=== PATIENT | female | born 1965 | race Hispanic/Latino ===

== ENCOUNTER 2021-05-23 16:05 | Inpatient (IN) | payer BC, OTHER ==
[~2021-05-23] VITALS: Ht 152.4 cm; Wt 105.0 kg
--- NOTE | 2021-05-23 16:18 | NUR ---
PATIENT TO ROOM VIA WHELCHAIR AND PHYSICIAN NOTIFIED OF PATIENT STATUS
[2021-05-23 17:18] LABS: HEMATOCRIT 38.5 % (37.0-47.0); HEMOGLOBIN 12.3 g/dl (12.0-16.0); IMMATURE GRANULOCYTES 0.3 % (0.0-5.0); MEAN CELL VOLUME 83.5 fL CALC (80.0-100.0); MEAN CORPUSCULAR HGB 26.7 pG CALC (26.0-32.0); MEAN CORPUSCULAR HGB CONC 31.9 g/dL CAL (32.0-36.0); NEUT# 11.97 thou/uL (2.00-7.15); RED BLOOD COUNT 4.61 mill/uL (4.20-5.60); RED CELL DISTRI WIDTH 12.8 % (11.5-15.5)
[2021-05-23 17:31] LABS: ALBUMIN 3.8 g/dL (3.2-5.0); ALKALINE PHOSPHATASE 66 u/l (38-126); ANION GAP 14 (6-22 (CALC)); BILIRUBIN, TOTAL 0.5 mg/dL (0.0-1.4); BUN 14 mg/dL (7-17); BUN/CREATININE RATIO 17 (12-20 (CALC)); CARBON DIOXIDE 32 mmol/l (22-30); CHLORIDE 95 mmol/l (95-108); CREATININE 0.8 mg/dL (0.5-1.0); GFR > 60 ML/MIN (>=60 (CALC)); GFR FOR AFR.AMER. > 60 ML/MIN (>=60 (CALC)); POTASSIUM 3.7 mmol/l (3.5-5.1); SGOT/AST 47 u/l (14-36); SODIUM 137 mmol/l (137-146); TOTAL PROTEIN 7.5 g/dL (6.3-8.2)
--- NOTE | 2021-05-23 18:12 | NUR ---
TO RADIOLOGY IN STABLE CONDITION
--- NOTE | 2021-05-23 19:50 | NUR ---
Admission Note Report Given to: FILEMON DE LA O Transported by: Wheelchair X Stretcher Transported with: X Nurse Transporter X Patent IV X O2 X Chain Builder Location: ICU X MS2
--- NOTE | 2021-05-23 20:00 | NUR ---
PATIENT TRANSFERRED TO [facility] VIA STRETCHER BY ER NURSE. PATIENT SELF AMBULATED TO BED. ORIENTED TO ROOM. CALL LIGHT WITHIN REACH ALONG WITH BELONGINGS. PATIENT STABLE AT THIS TIME. RESPIRATIONS EVEN AND NON LABORED.
[2021-05-23 21:15] VITALS: BP 133/62
--- NOTE | 2021-05-23 22:21 | NUR ---
ASSESSMENT DONE AT THIS TIME. PATIENT DENIES ANY PAIN OR DISCOMFORT. ALERT AND ORIENTED. ABLE TO MAKE NEEDS KNOWN. NEEDS ASSIST WITH ADL AND TRANSFER. CALL LIGHT AND BELONGINGS WITHIN REACH.
[2021-05-24] VITALS: BP 109/48
--- NOTE | 2021-05-24 02:15 | NUR ---
PT AWAKE LOW FOWLERS WATCHING TV.
[2021-05-24 05:00] VITALS: BP 107/53
--- NOTE | 2021-05-24 06:35 | NUR ---
PT IS SITTING UPRIGHT IN HIGH FOWLERS, O2 SAT 87% SUSTAINED ON 5LNC. PT PLACED ON HIGH FLOW NC 8L AT THIS TIME, SUSTAINING 91-92% PT REFUSED TO DEMONSTRATE I.S., I EDUCATED HER ON THE NEED FOR THIS THROUGHOUT THE DAY WHEN AWAKE, VERBALIZED UNDERSTANDING, STATED THAT SHE WILL DO THIS LATER. PT LEFT PRONING.
[2021-05-24 06:38] LABS: ALBUMIN 3.7 g/dL (3.2-5.0); ALKALINE PHOSPHATASE 75 u/l (38-126); ANION GAP 15 (6-22 (CALC)); BILIRUBIN, TOTAL 0.3 mg/dL (0.0-1.4); BUN 13 mg/dL (7-17); BUN/CREATININE RATIO 18 (12-20 (CALC)); CARBON DIOXIDE 27 mmol/l (22-30); CHLORIDE 100 mmol/l (95-108); CREATININE 0.7 mg/dL (0.5-1.0); GFR > 60 ML/MIN (>=60 (CALC)); GFR FOR AFR.AMER. > 60 ML/MIN (>=60 (CALC)); POTASSIUM 4.3 mmol/l (3.5-5.1); SGOT/AST 44 u/l (14-36); SODIUM 138 mmol/l (137-146); TOTAL PROTEIN 7.5 g/dL (6.3-8.2)
[2021-05-24 06:55] LABS: HEMATOCRIT 39.1 % (37.0-47.0); HEMOGLOBIN 12.7 g/dl (12.0-16.0); IMMATURE GRANULOCYTES 0.3 % (0.0-5.0); MEAN CELL VOLUME 83.4 fL CALC (80.0-100.0); MEAN CORPUSCULAR HGB 27.1 pG CALC (26.0-32.0); MEAN CORPUSCULAR HGB CONC 32.5 g/dL CAL (32.0-36.0); NEUT# 10.4 thou/uL (2.00-7.15); RED BLOOD COUNT 4.69 mill/uL (4.20-5.60); RED CELL DISTRI WIDTH 12.7 % (11.5-15.5)
[2021-05-24 07:02] LABS: C-REACTIVE PROTEIN 33.6 mg/dL (0-0.9)
[2021-05-24 07:41] VITALS: BP 124/63
--- NOTE | 2021-05-24 07:41 | NUR ---
PT SLEEP PRONING WHEN ENTERED ROOM. PT IS ALERT AND ORIENTED. PLEASANT WOMEN. VITALS AND ASSESSMENT COMPLETED. PT IS COVID+. ON 8L OF 02. S1 AND S2 HEARD UPON ASCULTATION. BOWELS ACTIVE IN ALL 4 QUADRANTS. SKIN WARM AND DRY. PEDAL PULSES STRONG BILATERALLY. IV PATENT AND HEALTHY. NO PAIN INDICATED. CALL LIGHT WITHIN REACH.
[2021-05-24 11:30] VITALS: BP 105/50
--- NOTE | 2021-05-24 12:00 | NUR ---
PT IN BED. NO DISTRESS NOTED. CALL LIGHT WITHIN REACH.
[2021-05-24 15:13] VITALS: BP 107/50
--- NOTE | 2021-05-24 17:16 | NUR ---
PT SITTING ON THE SIDE OF THE BED, PT ASSISTED TO BSC BY THIS PULPWOOD BUYER AND LINENS CHANGED. EXERTIONAL SOB NOTED; FLUSHED APPEARANCE BUT AFEBRILE AT THIS TIME. O2 REMAINS AT 10L HF NC CURRENTLY SUSTAINING 90-92%. PT ASSITED BACK TO BED. NO OTHER NEEDS AT THIS TIME. CALL LIGHT WITHIN REACH.
[2021-05-24 19:00] VITALS: BP 118/56
--- NOTE | 2021-05-24 20:02 | NUR ---
ASSESSMENT COMPLETE. PATIENT ALERT AND ABLE TO MAKE NEEDS KNOWN. PATIENT RECEIVED SCHEDULED MEDICATION WITHOUT DIFFICULTY. OXYGEN SATURATION AT 100% ON 10L HIGH FLOW. PATIENT DENIES ANY PAIN. CALL LIGHT AND BELONGINGS WITHIN REACH.
--- NOTE | 2021-05-24 20:19 | NUR ---
CALLED RESPIRATORY TO COME LOOK AT PATIENTS CPAP PER PATIENT REQUEST.
[2021-05-25] VITALS: BP 104/47
--- NOTE | 2021-05-25 | NUR ---
I WAS CALLED TO THE ROOM FOR LOW O2 SAT LEVELS OF PT. UPON ENTERING THE ROOM, 7TH GRADE TEACHER AND PT NURSE WERE AT BEDSIDE AND PT WAS PRONING IN THE BED WITH CPAP ON. OXYGEN SAT LEVELS WERE 74-76% ON CPAP WITH OXYGEN RUNNING TO CPAP. PT REMOVED CPAP, PLACING HIGH FLOW NC ON, OXYGEN SAT LEVELS QUICKLY DALI TO 91-93% ON 9L HIGH FLOW NC. SHE REMAINS IN PRONE POSITION UPON MY LEAVING THE ROOM.
--- NOTE | 2021-05-25 00:30 | NUR ---
RECHECKED PATIENTS O2, SATURATION SUSTAINING AT 93%. PATIENT DENIES ANY DISCOMFORT.
[2021-05-25 04:00] VITALS: BP 105/57
--- NOTE | 2021-05-25 04:30 | NUR ---
PATIENT TRANSFERRED TO BEDSIDE COMMODE WITH GLASS BREAKER PRESENT. NEW GOWN AND UNDERWEAR NETTING/PAD ON. FRESH WATER AT THE BED SIDE. PATIENT REQUESTED TO HAVE BLINDS CLOSED IN HER ROOM. NO COMPLAINTS VOICED AT THIS TIME. CALL LIGHT AND BELONGINGS REMAIN IN REACH.
[2021-05-25 05:46] LABS: HEMATOCRIT 38.5 % (37.0-47.0); HEMOGLOBIN 12.3 g/dl (12.0-16.0); IMMATURE GRANULOCYTES 0.3 % (0.0-5.0); MEAN CELL VOLUME 83.5 fL CALC (80.0-100.0); MEAN CORPUSCULAR HGB 26.7 pG CALC (26.0-32.0); MEAN CORPUSCULAR HGB CONC 31.9 g/dL CAL (32.0-36.0); NEUT# 9.99 thou/uL (2.00-7.15); RED BLOOD COUNT 4.61 mill/uL (4.20-5.60); RED CELL DISTRI WIDTH 12.8 % (11.5-15.5)
[2021-05-25 05:53] LABS: ALBUMIN 3.5 g/dL (3.2-5.0); ALKALINE PHOSPHATASE 69 u/l (38-126); ANION GAP 15 (6-22 (CALC)); BILIRUBIN, TOTAL 0.3 mg/dL (0.0-1.4); BUN 18 mg/dL (7-17); BUN/CREATININE RATIO 25 (12-20 (CALC)); CARBON DIOXIDE 27 mmol/l (22-30); CHLORIDE 100 mmol/l (95-108); CREATININE 0.7 mg/dL (0.5-1.0); GFR > 60 ML/MIN (>=60 (CALC)); GFR FOR AFR.AMER. > 60 ML/MIN (>=60 (CALC)); POTASSIUM 4.1 mmol/l (3.5-5.1); SGOT/AST 46 u/l (14-36); SODIUM 137 mmol/l (137-146); TOTAL PROTEIN 7.2 g/dL (6.3-8.2)
[2021-05-25 07:17] VITALS: BP 123/51
--- NOTE | 2021-05-25 07:17 | NUR ---
PT SLEEP WHEN ENTERING ROOM. PT IS COVID+ ON 10L OF 02. PT WAS PRONING. ALERT AND ORIENTED. VITALS AND ASSESSMENT COMPLETED. S1 AND S2 HEARD UPON ASCULTATION.SKIN WARM AND DRY. BOWELS ACTIVE IN ALL 4 QUADRANTS. PEDAL PULSES STRONG BILATERALLY. IV PATENT AND HEALTHY. NO PAIN INDICATED. CALL LIGHT WITHIN REACH.
--- NOTE | 2021-05-25 09:41 | NUR ---
Patient is screened for PT intervention and no needs are identified at this time
[2021-05-25 11:00] VITALS: BP 110/56
--- NOTE | 2021-05-25 11:06 | NUR ---
DR. DELGADO AND Danya CURRAN AT BEDSIDE DISCUSSING POC.
--- NOTE | 2021-05-25 11:40 | NUR ---
TOOK PT TO THE BSC. NO OTHER WANTS AT THIS TIME. CALL LIGHT WITHIN REACH.
--- NOTE | 2021-05-25 12:00 | NUR ---
PT IN BED. NO DISTRESS NOTED. CALL LIGHT WITHIN REACH.
[2021-05-25 16:30] VITALS: BP 116/49
[2021-05-25 19:00] VITALS: BP 123/49
--- NOTE | 2021-05-25 20:09 | NUR ---
PHYSICAL ASSESMENT COMPLETE. PT CURRENTLY DENIES PAIN OR DISCOMFORT. SCHEDULED MEDICATIONS AND PRN MEDICATION ADMINISTERED, SEE E-MAR. PT DENIES ANY NEEDS AT THIS TIME. PLAN OF CARE REVIEWED, PT DENIES QUESTIONS, VERBALIZES UNDERSTANDING. ITEMS WITHIN REACH, BED LOCKED IN LOW POSITION W/ BEDRAILS UP X2. CALL FREEMAN WITHIN REACH, AGREES TO CALL PRN.
[2021-05-26] VITALS: BP 118/67
--- NOTE | 2021-05-26 00:09 | NUR ---
PT LAYING IN BED WITH EYES CLOSED, APPEARS TO BE SLEEPING, APPEARS COMFORTABLE AND IN NO DISTRESS. RESPIRATIONS REGULAR AND UNLABORED. ITEMS REMAIN WITHIN REACH, CALL FREEMAN REMAINS WITHIN REACH. BED REMAINS LOCKED AND IN LOW POSITION WITH BEDRAILS UP X2. WILL CONTINUE TO MONITOR.
[2021-05-26 04:00] VITALS: BP 116/59
--- NOTE | 2021-05-26 04:00 | NUR ---
PT RESTING IN BED, NO SIGNS OF DISTRESS NOTED, RESP EVEN AND UNLABORED. PT VOICES NO NEEDS OR COMPLAINTS AT THIS TIME. CALL LIGHT IN REACH, CONTINUE TO MONITOR.
[2021-05-26 05:28] LABS: HEMATOCRIT 37.3 % (37.0-47.0); HEMOGLOBIN 11.7 g/dl (12.0-16.0); IMMATURE GRANULOCYTES 0.4 % (0.0-5.0); MEAN CELL VOLUME 84.6 fL CALC (80.0-100.0); MEAN CORPUSCULAR HGB 26.5 pG CALC (26.0-32.0); MEAN CORPUSCULAR HGB CONC 31.4 g/dL CAL (32.0-36.0); NEUT# 9.94 thou/uL (2.00-7.15); RED BLOOD COUNT 4.41 mill/uL (4.20-5.60); RED CELL DISTRI WIDTH 12.6 % (11.5-15.5)
[2021-05-26 05:59] LABS: ALBUMIN 3.3 g/dL (3.2-5.0); ALKALINE PHOSPHATASE 64 u/l (38-126); ANION GAP 14 (6-22 (CALC)); BILIRUBIN, TOTAL 0.3 mg/dL (0.0-1.4); BUN 21 mg/dL (7-17); BUN/CREATININE RATIO 27 (12-20 (CALC)); C-REACTIVE PROTEIN 5.7 mg/dL (0-0.9); CARBON DIOXIDE 26 mmol/l (22-30); CHLORIDE 103 mmol/l (95-108); CREATININE 0.8 mg/dL (0.5-1.0); GFR > 60 ML/MIN (>=60 (CALC)); GFR FOR AFR.AMER. > 60 ML/MIN (>=60 (CALC)); POTASSIUM 4.6 mmol/l (3.5-5.1); SGOT/AST 41 u/l (14-36); SODIUM 139 mmol/l (137-146); TOTAL PROTEIN 6.8 g/dL (6.3-8.2)
[2021-05-26 07:30] VITALS: BP 117/71
--- NOTE | 2021-05-26 07:30 | NUR ---
PT IN BED WHEN ENTERED ROOM. PT IS ALERT AND ORIENTED. COVID+ ON 14L O2. VITALS AND ASSESSMENT COMPLETED AT THIS TIME. S1 AND S2 HEARD UPON ASCULTATION. LUNGS DIMINISHED. BOWELS ACTIVE IN ALL 4 QUADS. SKIN DRY AND WARM. PEDAL PULSES BILATERALLY STRONG. NO PAIN INDICATED. CALL LIGHT WITHIN REACH.
--- NOTE | 2021-05-26 10:41 | NUR ---
PT IN BED. NO DISTRESS NOTED. NO PAIN INDICATED. CALL LIGHT WITHIN REACH.
[2021-05-26 11:00] VITALS: BP 133/56
--- NOTE | 2021-05-26 12:00 | NUR ---
PT IN BED. NO DISTRESS NOTED. NO NEEDS AT THIS TIME. CALL LIGHT WITHIN REACH.
[2021-05-26 19:00] VITALS: BP 116/55
[2021-05-27] VITALS (7 sets, daily range): BP systolic 101–125; BP diastolic 48–68
[2021-05-27 05:47] LABS: HEMATOCRIT 38.3 % (37.0-47.0); HEMOGLOBIN 12.2 g/dl (12.0-16.0); IMMATURE GRANULOCYTES 0.6 % (0.0-5.0); MEAN CELL VOLUME 84.7 fL CALC (80.0-100.0); MEAN CORPUSCULAR HGB CONC 31.9 g/dL CAL (32.0-36.0); NEUT# 10.23 thou/uL (2.00-7.15); RED BLOOD COUNT 4.52 mill/uL (4.20-5.60); RED CELL DISTRI WIDTH 12.7 % (11.5-15.5)
[2021-05-27 05:55] LABS: ALBUMIN 3.2 g/dL (3.2-5.0); ALKALINE PHOSPHATASE 56 u/l (38-126); ANION GAP 14 (6-22 (CALC)); BILIRUBIN, TOTAL 0.4 mg/dL (0.0-1.4); BUN 18 mg/dL (7-17); BUN/CREATININE RATIO 26 (12-20 (CALC)); CARBON DIOXIDE 26 mmol/l (22-30); CHLORIDE 103 mmol/l (95-108); CREATININE 0.7 mg/dL (0.5-1.0); GFR > 60 ML/MIN (>=60 (CALC)); GFR FOR AFR.AMER. > 60 ML/MIN (>=60 (CALC)); POTASSIUM 4.3 mmol/l (3.5-5.1); SGOT/AST 31 u/l (14-36); SODIUM 140 mmol/l (137-146); TOTAL PROTEIN 6.7 g/dL (6.3-8.2)
--- NOTE | 2021-05-27 07:00 | NUR ---
RECIEVED REPORT FROM FILEMON MENESES
--- NOTE | 2021-05-27 09:30 | NUR ---
PT RESTING IN SEMI FOWLERS POSITION. PT IS A/O X3. ASSESSMENT AND VITALS COMPLETED. BP 121/66, HR 100, O2 93% ON 13L HIGH FLOW NC. RESPIRATIONS ARE SHALLOW. LUNG SOUNDS ARE CLEAR. HEART RHYTHM NORMAL WITH TELE IN PLACE. BOWEL SOUNDS ARE ACTIVE. REPORTED BM. #20G LAC FLUSHED,SITE APPEARS HEALTHY AND PATENT. SKIN INTACT. PT DENIES OF ANY PAINS OR DISCOMFORTS AT THIS TIME. PT EDUACTED ON I.S/CHAIR/PRONING. PT VERBLAIZED UNDERSTANDING. ALL SAFETY AND ISOLATION PRECAUTIONS ARE IN PLACE WITH CALL LIGHT IN REACH. WILL CONTINUE TO MONITOR.
--- NOTE | 2021-05-27 10:48 | NUR ---
DR DELGADO AND NENA,ANKASANDRA AT BEDSIDE
--- NOTE | 2021-05-27 12:11 | NUR ---
PT RESTING IN SEMI FOWLERS POSITION. REPSIRATIONS ARE SHALLOW. 90% ON 13L HIGH FLOW NC. O2 INCREASED TO 15L HIGH FLOW NC AND PT ASSISTED IN PRONE POSITION. O2 95-96% WHILE PRONING. PT AGREES TO REMAINS PRONE FOR LONG POSSIBLE.TELE MONITORING IN PLACE. PT DENIES OF ANY PAINS OR DISCOMFORTS. ALL SAFETY PRECAUTIONS ARE IN PLACE WITH CALL LIGHT IN REACH. ISOLATION PRECAUTIONS. WILL CONTINUE TO MONITOR
--- NOTE | 2021-05-27 15:08 | NUR ---
PT RESTING IN SEMI FOWLERS POSITION. O2 93% ON 15L HIGH FLOW. RESPIRATIONS SHALLOW. IV ANTIBIOTICS INFUSING PER ORDER, SITE REMAINS HEALTHY AND PATENT. PT DENIES OF ANY PAINS OR DISCOMFORTS AT THIS TIME. ALL SAFETY PRECAUTIONS ARE IN PLACE WITH CALL LIGHT IN REACH. WILL CONTINUE TO MONITOR
--- NOTE | 2021-05-27 18:07 | NUR ---
NEW #22G RAC STARTED, SITE REMAINS HEALTHY AND PATENT. #20G LAC REMOVED WITH CATH STILL INTACT.
--- NOTE | 2021-05-27 20:17 | NUR ---
UPON ENTERING ROOM PT IS UPRIGHT IN HIGH FOWLERS WATCHING TO AND TALKING ON CELLPHONE. OXYGEN SAT 92% ON 15LNC HIGH FLOW. PT DENIES FEELING SOB AT THIS TIME. WE DISCUSSED PRONING AND I.S./SHE DEMONSTRATED ITS USE AT THIS TIME. WITH LOW VOLUME BREATH'S. ASSESSMENT COMPLETED ALSO AT THIS TIME AND MEDICATION ADMINISTERED ORDERS PROVIDE. TISHA SOUNDS ARE DIMINISHED.
--- NOTE | 2021-05-28 00:20 | NUR ---
POLISHING MACHINE OPERATOR OBTAINING V/S, REPORTS PT IS 98% O2 SAT AT THIS TIME AND PT IS PRONING.
[2021-05-28 04:00] VITALS: BP 113/51
--- NOTE | 2021-05-28 04:00 | NUR ---
GYNECOLOGICAL ASSISTANT CALLED TO REPORT THAT PT O2 SATS WERE 84% UPON ASSESSING THE PT, WE WERE ABLE TO REMOVE PILLOWS FROM PRONING POSITION AND SHE LAYED MORE FLAT ON THE BED ALLOWING O2 SATS TO COME BACK UP TO 92% ON 15L NC HIGH FLOW.
--- NOTE | 2021-05-28 05:00 | NUR ---
PT CALLED ASKING FOR ASSISTANCE USING BSC. CREW LEADER ASSISTED HER TO BSC AND BACK TO THE BED. BY THE TIME THE PT RETURNED TO THE BED PRONE HER 02 SATS WERE 65% ON THE 15LNC HIGH FLOW. BUT QUICKLY CORRECTED ITSELF BACK UP TO 95% AFTER A COUPLE OF MINUTES PRONING FLAT. POC AND OPTIONS WERE DISCUSSED WITH THE PT AT THIS TIME. SHE VOICED NOT WANTING TO GO TO ICU. DISCUSSED POSSIBLE BABB CATH NEED TO PROTECT HER O2 SAT LEVELS, SHE AGREED IF NECESSARY THAT WOULD NOT BE A PROBLEM. I ADVISED HER THAT THE PHYSICIAN WOULD BE IN THIS MORNING TO DISCUSS HER STATUS AND OPTIONS.
[2021-05-28 05:26] LABS: HEMATOCRIT 40.9 % (37.0-47.0); HEMOGLOBIN 12.6 g/dl (12.0-16.0); IMMATURE GRANULOCYTES 1.5 % (0.0-5.0); MEAN CELL VOLUME 84.7 fL CALC (80.0-100.0); MEAN CORPUSCULAR HGB 26.1 pG CALC (26.0-32.0); MEAN CORPUSCULAR HGB CONC 30.8 g/dL CAL (32.0-36.0); NEUT# 8.76 thou/uL (2.00-7.15); RED BLOOD COUNT 4.83 mill/uL (4.20-5.60); RED CELL DISTRI WIDTH 12.5 % (11.5-15.5)
[2021-05-28 06:06] LABS: ALBUMIN 3.2 g/dL (3.2-5.0); ALKALINE PHOSPHATASE 63 u/l (38-126); ANION GAP 14 (6-22 (CALC)); BILIRUBIN, TOTAL 0.4 mg/dL (0.0-1.4); BUN 16 mg/dL (7-17); BUN/CREATININE RATIO 23 (12-20 (CALC)); C-REACTIVE PROTEIN 7.5 mg/dL (0-0.9); CARBON DIOXIDE 27 mmol/l (22-30); CHLORIDE 103 mmol/l (95-108); CREATININE 0.7 mg/dL (0.5-1.0); GFR > 60 ML/MIN (>=60 (CALC)); GFR FOR AFR.AMER. > 60 ML/MIN (>=60 (CALC)); POTASSIUM 4.8 mmol/l (3.5-5.1); SGOT/AST 24 u/l (14-36); SODIUM 139 mmol/l (137-146); TOTAL PROTEIN 6.6 g/dL (6.3-8.2)
--- NOTE | 2021-05-28 06:50 | NUR ---
REPORT REC FROM Siena KANG RN
[2021-05-28 08:16] VITALS: BP 119/70
--- NOTE | 2021-05-28 08:16 | NUR ---
PT SITTING ON THE SIDE OF THE BED. A&O X4. FLUSHED APPEARANCE NOTED; AFEBILE AT THIS TIME. PT SUSTAINING 87-88% ON 15L HF. PT C/O OF "CONGESTION"; MD TO BE NOTIFIED TO OBTAIN FLONASE ORDER; LUBRICANT ADDED TO NARES FOR MOISTURE. PT REQUESTING TO BE PLACED ON "ANOTHER FORM OF O2; A MASK", VERBAL APPROVAL OBTAINED BY DR NOLAND FOR NRB; Douglas QUISPE RT AT BEDSIDE SWITCHING PT TO NRB, PT TOLERATED WELL; CURRENTLY 93%. CLEAR/DIMINISHED BREATH SOUNDS UPON AUSCULTATION. WIRE COATER IN PLACE CURRENT 98 BPM. ACTIVE BOWEL SOUNDS X4 QUADRANTS. BM THIS MORNING, LOOSE IN CONSISTENCY. NO OTHER NEEDS AT THIS TIME. ASSESSMENT COMPLETED. DISCUSSED POC. VERBAL QUES GIVEN FOR SLIGHT ANXIETY; PT REFUSING XANAX AT THIS TIME; RECEPTIVE TO QUES. ISOLATION PRECAUTIONS IN PLACE. CALL LIGHT WITHIN REACH.
--- NOTE | 2021-05-28 10:35 | NUR ---
DR NOLAND AND Brandon GREEN APRN AT BEDSIDE DISCUSSING POC
[2021-05-28 12:00] VITALS: BP 108/74
--- NOTE | 2021-05-28 12:50 | NUR ---
PT PRONING WITH NRB; PT TOLERATING WELL. O2 @ 98%. NO DISTRESS NOTED. PT REPORTS BREATHING TO LESS DIFFICULT. NO OTHER NEEDS AT THIS TIME. CALL LIGHT WITHIN REACH.
--- NOTE | 2021-05-28 14:17 | NUR ---
PT REMAINS ON NRB; O2 97%. PT REPORTS FEELING BETTER THIS AFTERNOON. PT ASSISTED INTO RECLINER. PT TOLERATED ACTIVITY WELL. BED LINENS CHANGED BY THIS MUSIC ENGRAVER. PT INSTRUCTED TO CALL IF WANTING TO GET OOC. PT VERBALIZED UNDERSTANDING. CALL LIGHT WITHIN REACH.
[2021-05-28 15:00] VITALS: BP 97/59
--- NOTE | 2021-05-28 17:37 | NUR ---
PT SET UP FOR DINNER, CHANGED TO 15L HF, NRB AT SIDE. NO OTHER NEEDS AT THIS TIME. ABX INITIATED AT THIS TIME. CALL LIGHT WITHIN REACH.
[2021-05-28 20:24] VITALS: BP 102/61
--- NOTE | 2021-05-28 20:24 | NUR ---
PT MEDICATED ORDERS PROVIDE AND V/S ASSESSED STABLE. 02SAT 96% WITH NON-REBREATHER IN PLACE OF NC. PT SITTING UPRIGHT IN RECLINER. REPORTS FEELING BETTER THIS EVENING.
--- NOTE | 2021-05-28 21:15 | NUR ---
ANTIBIOTIC THERAPY COMPLETED AT THIS TIME. NO S/O DISTRESS. SHE IS UPRIGHT IN RECLINER TALKING ON CELL PHONE. 96% 02SAT ON 15L NON-REBREATHER MASK.
[2021-05-29] VITALS: BP 155/53
[2021-05-29 04:00] VITALS: BP 109/61
--- NOTE | 2021-05-29 04:05 | NUR ---
PT SLEEPING IN PRONE POSITION, V/S ASSESSED. O2 SATS @96% ON 15LNC HIGH FLOW. PT ASKED FOR ADDITIONAL BLANKET/PROVIDED.
[2021-05-29 05:37] LABS: HEMATOCRIT 39.5 % (37.0-47.0); HEMOGLOBIN 12.5 g/dl (12.0-16.0); IMMATURE GRANULOCYTES 1.7 % (0.0-5.0); MEAN CELL VOLUME 83.9 fL CALC (80.0-100.0); MEAN CORPUSCULAR HGB 26.5 pG CALC (26.0-32.0); MEAN CORPUSCULAR HGB CONC 31.6 g/dL CAL (32.0-36.0); NEUT# 12.02 thou/uL (2.00-7.15); RED BLOOD COUNT 4.71 mill/uL (4.20-5.60); RED CELL DISTRI WIDTH 12.7 % (11.5-15.5)
[2021-05-29 05:49] LABS: ALKALINE PHOSPHATASE 62 u/l (38-126); ANION GAP 12 (6-22 (CALC)); BILIRUBIN, TOTAL 0.3 mg/dL (0.0-1.4); BUN 20 mg/dL (7-17); BUN/CREATININE RATIO 27 (12-20 (CALC)); C-REACTIVE PROTEIN 7.4 mg/dL (0-0.9); CARBON DIOXIDE 28 mmol/l (22-30); CHLORIDE 102 mmol/l (95-108); CREATININE 0.7 mg/dL (0.5-1.0); GFR > 60 ML/MIN (>=60 (CALC)); GFR FOR AFR.AMER. > 60 ML/MIN (>=60 (CALC)); POTASSIUM 4.7 mmol/l (3.5-5.1); SGOT/AST 21 u/l (14-36); SODIUM 137 mmol/l (137-146); TOTAL PROTEIN 6.3 g/dL (6.3-8.2)
--- NOTE | 2021-05-29 06:50 | NUR ---
REPORT RECEIVED. ALL QUESTIONS ANSWERED
--- NOTE | 2021-05-29 08:00 | NUR ---
PT UP TO CHAIR. PT A&OX4. PT DENIES ANY PAIN OR AT THIS TIME. PT C/O NASAL CONGESTION. PT USES FLONASE DAILY. WILL ADMINISTER MEDICATION. PT SPO2=95% ON 15L NC HIGHFLOW. VS AND ASSESSMENT COMPLETE. LUNG SOUNDS DIMINISHED. BOWEL SOUNDS ACTIVE X 4QUAD. PERIPHERAL PULSES PALPALBLE. IV SITE FLUSHED AND IS PATENT. WILL MONITOR PT CLOSELY
[2021-05-29 11:05] VITALS: BP 92/49
--- NOTE | 2021-05-29 12:00 | NUR ---
PT HAS NO NEEDS AT THIS TIME. PT UP TO CHAIR. PT DENIES ANY PAIN OR DISCOMFORT. WILL CONTINUE TO MONITOR CLOSELY
[2021-05-29 15:00] VITALS: BP 113/63
[2021-05-29 19:17] VITALS: BP 90/56
--- NOTE | 2021-05-29 20:00 | NUR ---
PATIENT IS SITTING UP IN THE RECLINER AT THIS TIME WITH O2 VIA NASAL CANNULA AT 15LPM HF. O2 SAT IS 90% AT THIS TIME. AWAKE ALERT AND ORIENTEDX3. TELE MONITOR IN PLACE AND READING ST-105 AT THIS TIME. ENCOURAGED USE OF IS Q1H WHILE AWAKE IN REPS OF 10. ALSO ENCOUARGED PRONING WHEN POSSIBLE. LUNGS ARE CLEAR AT THIS TIME. ABD IS SOFT WITH ACTIVE BS. PATIENT STATES THAT SHE DID HAVE BM TODAY. DENIES ANY PROBLEMS WITH URINATION. NO PERIPHERAL EDEMA NOTED. PULSE ARE PALPABLE. ON ISOLATION FOR COVID. SAFETY PRECAUTIONS REINFORCED. HS SNACK PROVIDED. CALL LIGHT IN REACH. WILL CONT TO MONITOR.
--- NOTE | 2021-05-29 21:45 | NUR ---
PATIENT WITH AZITHRO INFUSING VIA RAC SITE ORDERED. MIN ASSIST PATIENT INOT BED AT THIS TIME. PATIENT WITH O2 NASAL CANNULA IN PLACE AT 15LPM AND NON-REBREATHER IN PLACE. PATIENT IS PRONE AT THIS TIME. CALL LIGHT IN REACH. WILL CONT TO MONITOR.
[2021-05-30 01:07] VITALS: BP 105/55
--- NOTE | 2021-05-30 01:17 | NUR ---
PATIENT CONT TO LYE PRONE IN BED WITH O2 N/C AND NON-REBREATHER IN PLACE WITH O2 SAT OF 97%. TELE MONITOR IN PLACE WITH LAST READING OF SR-64. RESPS ARE EVEN AND UNLABORED. CALL LIGHT IN REACH. WILL CONT TO MONITOR.
--- NOTE | 2021-05-30 04:04 | NUR ---
PATIENT IS AWAKE WITH O2 VIA NASAL CANNULA 15L HIGH FLOW AND NON-REBREATHER IN PLACE. NO COMPLAINTS AT THIS TIME. TELE MONITOR IN PLACE. CALL LIGHT IN REACH. WILL CONT TO MONITOR.
[2021-05-30 05:15] VITALS: BP 109/58
[2021-05-30 05:29] LABS: HEMATOCRIT 40.1 % (37.0-47.0); HEMOGLOBIN 12.9 g/dl (12.0-16.0); IMMATURE GRANULOCYTES 1.5 % (0.0-5.0); MEAN CELL VOLUME 83.7 fL CALC (80.0-100.0); MEAN CORPUSCULAR HGB 26.9 pG CALC (26.0-32.0); MEAN CORPUSCULAR HGB CONC 32.2 g/dL CAL (32.0-36.0); NEUT# 11.81 thou/uL (2.00-7.15); RED BLOOD COUNT 4.79 mill/uL (4.20-5.60); RED CELL DISTRI WIDTH 12.8 % (11.5-15.5)
[2021-05-30 05:43] LABS: ALKALINE PHOSPHATASE 57 u/l (38-126); ANION GAP 12 (6-22 (CALC)); BILIRUBIN, TOTAL 0.3 mg/dL (0.0-1.4); BUN 22 mg/dL (7-17); BUN/CREATININE RATIO 32 (12-20 (CALC)); CARBON DIOXIDE 27 mmol/l (22-30); CHLORIDE 102 mmol/l (95-108); CREATININE 0.7 mg/dL (0.5-1.0); GFR > 60 ML/MIN (>=60 (CALC)); GFR FOR AFR.AMER. > 60 ML/MIN (>=60 (CALC)); POTASSIUM 4.2 mmol/l (3.5-5.1); SGOT/AST 19 u/l (14-36); SODIUM 137 mmol/l (137-146); TOTAL PROTEIN 6.4 g/dL (6.3-8.2)
[2021-05-30 08:10] VITALS: BP 107/54
--- NOTE | 2021-05-30 08:10 | NUR ---
PT SITTING UP IN BED DENIES ANY PAIN OR DISCOMFOT AT THIS TIME. ALERT AND ORIENTED X4 VS AND ASSESSMENT COMPLETE. LUNGS DIMINISHED BREATHS UNLABORED. ABDOMEN ROUND,SOFT NONTENDER. SKIN INTACT PERIPHERAL PULSES STRONG. IV PATENT. IV PATENT AND FLUSHED. SAFETY MEASURES IN PLACE. WILL MONITORD PT CLOSELY
[2021-05-30 11:11] VITALS: BP 96/50
--- NOTE | 2021-05-30 12:00 | NUR ---
PT SITTING UP IN CHAIR. PT DENIES PAIN OR DISCOMFORT. PT HAS NO NEEDS AT THIS TIME. SAFETY PRECAUTIONS IN PLACE. CALL LIGHT WITHIN REACH. WILL CONTINUE TO MONITOR PATIENT CLOSELY
[2021-05-30 15:17] VITALS: BP 92/59
--- NOTE | 2021-05-30 16:00 | NUR ---
PT SITTING IN CHAIR. PT HAS NO NEEDS AT THIS TIME. NO PAIN OR DISCOMFORT REPORTED BY PT. SAFETY PRECAUTIONS IN PLACE, CALL LIGHT WITHIN PT'S REACH. WILL CONTINUE TO MONITOR PATIENT CLOSELY
[2021-05-30 19:00] VITALS: BP 100/60
--- NOTE | 2021-05-30 19:50 | NUR ---
PATIENT SITTING UP IN THE RECLINER WITH NON-REBREATHER IN PLACE. IV ROCEPHIN FINISHED AND IV SITE TO RAC FLUSHED WITH NS. SITE REMAINS HEALTHY WITH GOOD BLOOD RETURN. TELE MONITOR IN PLACE-LAST READING WAS SR-77. ENCOURAGED USE OF IS Q1H W/A AND PRONING WHEN POSSIBLE. LUNGS ARE DIMINISHED THROUGHOUT. NON-PRODUCTIVE COUGH NOTED. LAST BM WAS YESTERDAY. ABD IS SOFT WITH BS+. DENIES ANY DIFFICULTY WITH URINATION,PATIENT ON ISOLATION FOR COVID. SAFETY PRECAUTIONS REINFORCED. CALL LIGHT IN REACH. WILL CONT TO MONITOR.
--- NOTE | 2021-05-30 22:49 | NUR ---
PATIENT STILL UP IN THE CHAIR WITH NON-REBREATHER IN PLACE AT 15LPM HI FLOW. O2 SAT AT THIS TIME IS 95-96%. STILL WITH NON-PRODUCTIVE COUGH. AZITHROMYCIN HUNG ORDERED VIA [facility] SITE. PATIENT REFUSED XANAX EARLIER-STATES THAT SHE DOESN'T WANT IT. TELE MONITOR IN PLACE. PATIENT ON ISOLATION FOR COVID. SAFETY PRECAUTIONS REINFORCED. CALL LIGHT IN REACH., WILL CONT TO MONITOR.
[2021-05-31] VITALS: BP 106/67
--- NOTE | 2021-05-31 01:53 | NUR ---
PATIENT PRONING IN BED WITH NON-REBREATHER 15LPM HI FLOW IN PLACE. RESPS ARE EVEN AND UNLABORED. TELE MONITOR IN PLACE. CALL LIGHT IN REACH. WILL CONT TO MONITOR.
[2021-05-31 03:51] VITALS: BP 91/53
--- NOTE | 2021-05-31 04:43 | NUR ---
PATIENT IS PRONE IN BED WITH NON-REBREATHER ON 15LPM HIGH FLOW IN PLACE. O2 SAT IS 92%. EYES ARE CLOSED AND APPEARS SLEEPING. RESPS ARE EVEN AND UNLABORED, TELE MONITOR IN PLACE-LAST TELE READING WAS SR-72. CALL LIGHT IN REACH. WILL CONT TO MONITOR.
[2021-05-31 05:46] LABS: HEMATOCRIT 41.2 % (37.0-47.0); HEMOGLOBIN 12.9 g/dl (12.0-16.0); IMMATURE GRANULOCYTES 0.8 % (0.0-5.0); MEAN CELL VOLUME 84.8 fL CALC (80.0-100.0); MEAN CORPUSCULAR HGB 26.5 pG CALC (26.0-32.0); MEAN CORPUSCULAR HGB CONC 31.3 g/dL CAL (32.0-36.0); NEUT# 10.91 thou/uL (2.00-7.15); RED BLOOD COUNT 4.86 mill/uL (4.20-5.60); RED CELL DISTRI WIDTH 12.9 % (11.5-15.5)
[2021-05-31 06:21] LABS: ALKALINE PHOSPHATASE 60 u/l (38-126); ANION GAP 12 (6-22 (CALC)); BILIRUBIN, TOTAL 0.3 mg/dL (0.0-1.4); BUN 21 mg/dL (7-17); BUN/CREATININE RATIO 28 (12-20 (CALC)); C-REACTIVE PROTEIN 3.6 mg/dL (0-0.9); CARBON DIOXIDE 29 mmol/l (22-30); CHLORIDE 102 mmol/l (95-108); CREATININE 0.7 mg/dL (0.5-1.0); GFR > 60 ML/MIN (>=60 (CALC)); GFR FOR AFR.AMER. > 60 ML/MIN (>=60 (CALC)); POTASSIUM 4.9 mmol/l (3.5-5.1); SGOT/AST 24 u/l (14-36); SODIUM 137 mmol/l (137-146); TOTAL PROTEIN 6.3 g/dL (6.3-8.2)
--- NOTE | 2021-05-31 07:00 | NUR ---
RECIEVED REPORT FROM FILEMON DORADO
[2021-05-31 09:06] VITALS: BP 109/61
--- NOTE | 2021-05-31 09:06 | NUR ---
PT SITTING UP ON SIDE OF BED UPON ENTERING ROOM. PT IS A/O X3. ASSESSMENT AND VITALS OBTAINED. BP 109/61, HR 103, O2 95% ON 15L HIGH FLOW NC AND 15L NRB. RESPIRATIONS ARE SHALLOW. LUNG SOUNDS ARE CLEAR. HEART RHYTHM NORMAL WITH TELE. BOWEL SOUNDS ARE ACTIVE. #22G RAC FLUSHED, SITE APPEARS HEALTHY AND PATENT. SKIN INTACT. PT DENIES OF ANY PAINS OR DISCOMFORTS AT THIS TIME. PT ASSISTED UP INTO CHAIR. PT DESAT TO 87%. O2 INCREASED BACK TO 90'S. ALL SAFETY PRECAUTIONS ARE IN PLACE WITH CALL LIGHT IN REACH. ISOLATION PRECAUTIONS. WILL CONTINUE TO MONITOR.
[2021-05-31 10:30] VITALS: BP 103/82
--- NOTE | 2021-05-31 10:45 | NUR ---
DR DELGADO AND NENA,ANKASANDRA AT BEDSIDE
--- NOTE | 2021-05-31 12:25 | NUR ---
PT RESTING IN CHAIR. REPSIRATIONS ARE SHALLOW ON 10L NC HIGH FLOW AND 14L NRB, 93-94%. TELE MONITORING IN PLACE. IV REMAINS IN PLACE. PT DENIES OF ANY PAINS OR DISCOMOFRTS. ALL SAFTEY AND ISOLATION PRECAUTIONS ARE IN PLACE. WILL CONTINUE TO MONITOR.
[2021-05-31 15:00] VITALS: BP 105/93
--- NOTE | 2021-05-31 17:07 | NUR ---
O2 95% ON 8L HIGH FLOW NC AND 10L NRB. RESPIRATIONS REMAINS EVEN AND UNLABORED. NEW #22G RFA STARTED, SITE REMAINS HEALTHY AND PATENT. #22G RAC REMOVED WITH CATH STILL INTACT. TELE MONITORING IN PLACE. PT DENIES OF ANY PAINS. PT REQUEST COUGH MEDICATION. NEW ORDER TO BE OBTAINED. ALL SAFETY PRECAUTIONS ARE IN PLACE WITH CALL LIGHT IN REACH. WILL CONTINUE TO MONITOR
[2021-05-31 19:00] VITALS: BP 103/63
--- NOTE | 2021-05-31 20:00 | NUR ---
PATIENT SITTING UP IN THE RECLINER AT THIS TIME-AWAKE ALERT AND ORIENTEDX3. PATIENT WITH JUST O2 VIA NASAL CANNULA IN PLACE AT 10L HIGH FLOW. O2 SAT WAS 90% AT THIS TIME. LUNGS ARE STILL DIMINISHED. NON-PRODUCTIVE COUGH. TELE MONITOR IN PLACE-LAST READING WAS SR-88. REMAINS ON ISOLATION FOR COVID. STATES THAT SHE DID HAVE BM TODAY. DEN IES ANY DIFFICULTY WITH URINATION. SAFETY PRECAUTIONS REINFORCED. CALL LIGHT IN REACH. WILL CONT TO MONITOR.
--- NOTE | 2021-05-31 21:15 | NUR ---
PATIENT REMAINS UP IN RECLINER-STILL WITH O2 VIA NASAL CANNULA ONLY IN PLACE WITH O2 SAT OF 92%. AZITHRO HUNG ORDERED VIA RIGHT FOREARM SITE. SITE IS HEALTHY AT THIS TIME. PROVIDED WITH HS SNACK OF JUICE AND CEREAL BAR. MEDICATED FOR COUGH WITH ROBITUSSIN AC. CALL LIGHT IN REACH. WILL CONT TO MONITOR.
[2021-06-01] VITALS (7 sets, daily range): BP systolic 91–169; BP diastolic 48–88
--- NOTE | 2021-06-01 00:31 | NUR ---
PATIENT APPEARS SLEEPING AT THIS TIME WITH EYES CLOSED. O2 VIA NASAL CANNULA IN PLACE. ,O2 SAT IS 94% ON 10L HIGH FLOW. TELE MONITOR IN PLACE. CALL LIGHT IN REACH. WILL CONT TO MONITOR.
--- NOTE | 2021-06-01 04:30 | NUR ---
PATIENT IS STILL UP IN THE RECLINER. PATIENT WITH NASAL CANNULA IN PLACE AT 12L HIGH FLOW AND THE NRB MASK AT 19L-O2 SAT IS 93-94 AT THIS TIME. NO COMPLAINTS AT THIS TIME. TELE MONITOR IN PLACE-LAST READING WAS SR-83. CALL LIGHT IN REACH. WILL CONT TO MONITOR.
[2021-06-01 06:19] LABS: ALBUMIN 3.1 g/dL (3.2-5.0); ALKALINE PHOSPHATASE 60 u/l (38-126); ANION GAP 14 (6-22 (CALC)); BILIRUBIN, TOTAL 0.4 mg/dL (0.0-1.4); BUN 22 mg/dL (7-17); BUN/CREATININE RATIO 31 (12-20 (CALC)); CARBON DIOXIDE 27 mmol/l (22-30); CHLORIDE 100 mmol/l (95-108); CREATININE 0.7 mg/dL (0.5-1.0); GFR > 60 ML/MIN (>=60 (CALC)); GFR FOR AFR.AMER. > 60 ML/MIN (>=60 (CALC)); POTASSIUM 4.7 mmol/l (3.5-5.1); SGOT/AST 22 u/l (14-36); SODIUM 137 mmol/l (137-146); TOTAL PROTEIN 6.5 g/dL (6.3-8.2)
[2021-06-01 06:24] LABS: HEMOGLOBIN 13.3 g/dl (12.0-16.0); IMMATURE GRANULOCYTES 0.4 % (0.0-5.0); MEAN CELL VOLUME 84.3 fL CALC (80.0-100.0); MEAN CORPUSCULAR HGB 26.7 pG CALC (26.0-32.0); MEAN CORPUSCULAR HGB CONC 31.7 g/dL CAL (32.0-36.0); NEUT# 11.15 thou/uL (2.00-7.15); RED BLOOD COUNT 4.98 mill/uL (4.20-5.60); RED CELL DISTRI WIDTH 12.9 % (11.5-15.5)
--- NOTE | 2021-06-01 07:00 | NUR ---
RECIEVED REPORT FROM FILEMON DORADO
--- NOTE | 2021-06-01 08:14 | NUR ---
PT RESTING IN SEMI FOWLERS POSITION. PT IS A/O X3. ASSESSMENT AND VITALS COMPLETED. RESPIRATIONS ARE SHALLOW, 93% ON 8L HIGH FLOW NC AND 9L NRB.PT REQUEST NRB DUE TO BEING CONGESTED AND MOUTH BREATHING. PT STATES HOME CPAP IS NOT WORKING, RT TO BE CALLED. LUNG SOUNDS ARE CLEAR. HEART RHYTHM NORMAL WITH TELE IN PLACE. BOWEL SOUNDS ARE ACTIVE X4. #22G RFA FLUSHED, SITE APPEARS HEALTHY AND PATENT. SKIN INTACT. PT DENIES OF ANY PAINS OR DISCOMFORTS AT THIS TIME. ALL SAFETY PRECAUTIONS ARE IN PLACE WITH CALL LIGHT IN REACH. PT EDUCATED ON I.S/CHAIR/PRONING. WILL CONTINUE TO MONITOR.
--- NOTE | 2021-06-01 08:50 | NUR ---
DR DELGADO AND NENA,ANKASANDRA AT BEDSIDE
--- NOTE | 2021-06-01 09:15 | NUR ---
RT ATTEMPTED TO SET UP HOME CPAP. COLLATOR HAND INFORMED THE CPAP IS UNABLE TO HOME THE AMOUNT OF O2 THE PATIENT IS ON. NRB INCREASED TO 15L, 10L HIGH FLOW NC. HIGH FLOW NC TO BE DECREASED FIRST AND THEN ATTEMPT NRB TO TRANSITION PT TO VENTI MASK PER RT RECOMMENDATIONS.
--- NOTE | 2021-06-01 10:28 | NUR ---
PT IS ON 15l NRB AND 10L HFNC SAT IS 94-95%
--- NOTE | 2021-06-01 10:40 | NUR ---
LEAD MINER BLASTING INFROMED BY LOG BUNCHER THAT PT STATED SHE FELT LIKE SHE WAS GOING TO PASS OUT WHEN ASSISTED BACK TO CHAIR FROM BSC. PT SITTING UP IN REYCLINER UPON ENTERING ROOM. RESPIRATIONS ARE SHALLOW ON 10L NC AND 15L NRB. VITALS OBATINED BP 114/48, HR 100, O2 91%. PT STATES "I THINK ITS BECAUSE I GET SO SOB." PT STATES SHE FEELS BETTER ONCE BACK IN CHAIR. PT INFORMED TO CALL FOR ASSISTANCE TO BSC. PT VERBALIZED UNDERSTANDING. WILL CONTINUE TO MONITOR.
--- NOTE | 2021-06-01 11:28 | NUR ---
PT SITTING IN RECYLINER WATCHING TV AND ON PHONE.RESPIRATIONS REMAINS SHALLOW ON 10L HIGH FLOW NC AND 15L NRB. TELE MONTIORING IN PLACE. #22G RFA REMAINS IN PLACE. PT DENIES OF ANY PAINS OR DISCOMFORTS AT THIS TIME. ALL SAFETY PRECAUTIONS ARE IN PLACE WITH CALL LIGHT IN REACH. WILL CONTINUE TO MONITOR.
--- NOTE | 2021-06-01 14:11 | NUR ---
PT IS SITTING IN CHAIR ON 15L NRB AND 10L HFNC SAT 90%
--- NOTE | 2021-06-01 16:24 | NUR ---
PT SITTING IN RECLYINER ON PHONE.REPSIRATIONS ARE SHALLOW ON 10L NC HIGH FLOW AND 15L NRB. TELE MONITORING IN PLACE. #22G RFA REMAINS IN PLACE. PT DENIES OF ANY PAINS OR DISCOMFORTS AT THIS TIME. ROBITUSSIN ADMINISTERED. ALL SAFETY PECAUTIONS ARE IN PLACE WITH CALL LIGHT IN REACH. WILL CONTINUE TO MONITOR
--- NOTE | 2021-06-01 17:41 | NUR ---
O2 96% ON 10L HIGH FL NC AND 15L NRB. NC DECREASED TO 8L HIGH FLOW. RESPIRATIONS REMAINS EVEN AND UNLABORED. ALL SAFETY PRECAUTIONS ARE IN PLACE. WILL CONTINUE TO MONITOR
--- NOTE | 2021-06-01 20:00 | NUR ---
PATIENT AWAKE SITTING UP IN CHAIR. ALERT AND ORIENTED X3. DENIES PAIN. RESPIRATIONS EVEN AND UNLABORED. O2 10L HIGH FLOW N/C WITH 15L NRB MASK IN PLACE. NO ACUTE DISTRESS OBSERVED. DENEIS PAIN. ON TELEMETRY. HR REG. ASSESSMENT COMPLETED AND CHARTED. BED IN LOW POSITION. CALL LIGHT WITHIN REACH. FALL PRECAUTIONS MAINTAINED.
--- NOTE | 2021-06-02 | NUR ---
PATIENT RESTING QUIETLY. NO ACUTE DISTRESS OBSERVED.
[2021-06-02 00:56] VITALS: BP 108/70
[2021-06-02 04:35] VITALS: BP 118/70
--- NOTE | 2021-06-02 05:01 | NUR ---
RESTING QUIETLY. NO COMPLAINTS. O2 IN PLACE. BED IN LOW POSITION. CALL LIGHT WITHIN REACH.
[2021-06-02 05:39] LABS: HEMATOCRIT 38.9 % (37.0-47.0); IMMATURE GRANULOCYTES 0.4 % (0.0-5.0); MEAN CELL VOLUME 85.5 fL CALC (80.0-100.0); MEAN CORPUSCULAR HGB 26.4 pG CALC (26.0-32.0); MEAN CORPUSCULAR HGB CONC 30.8 g/dL CAL (32.0-36.0); NEUT# 12.32 thou/uL (2.00-7.15); RED BLOOD COUNT 4.55 mill/uL (4.20-5.60); RED CELL DISTRI WIDTH 12.9 % (11.5-15.5)
[2021-06-02 06:15] LABS: ALBUMIN 3.1 g/dL (3.2-5.0); ALKALINE PHOSPHATASE 57 u/l (38-126); ANION GAP 12 (6-22 (CALC)); BILIRUBIN, TOTAL 0.4 mg/dL (0.0-1.4); BUN 23 mg/dL (7-17); BUN/CREATININE RATIO 36 (12-20 (CALC)); C-REACTIVE PROTEIN 2.1 mg/dL (0-0.9); CARBON DIOXIDE 29 mmol/l (22-30); CHLORIDE 101 mmol/l (95-108); CREATININE 0.7 mg/dL (0.5-1.0); GFR > 60 ML/MIN (>=60 (CALC)); GFR FOR AFR.AMER. > 60 ML/MIN (>=60 (CALC)); POTASSIUM 4.8 mmol/l (3.5-5.1); SGOT/AST 20 u/l (14-36); SODIUM 137 mmol/l (137-146); TOTAL PROTEIN 6.5 g/dL (6.3-8.2)
--- NOTE | 2021-06-02 07:50 | NUR ---
PATIENT ALERT AND ORIENTED. ABLE TO MAKE NEEDS KNOWN. PLEASANT AND COOPERATIVE. SITTING IN RECLINER. ASSESSMENT COMPLETE. NO COMPLAINTS VOICED. CALL LIGHT AND BELONGINGS WITHIN REACH.
--- NOTE | 2021-06-02 08:00 | NUR ---
PT AWAKE AND SITTING IN BED. PT ALERT AND ORIENTED. VS AND ASSESSMENT COMPLETE. HR REGULAR. PHERIPHERAL PULSES PALPABLEE. IV PATENT AND FLUSHED. PT ON AND . PT DENIES ANY PAIN OR DISTRESS AT THIS TIME. SAFETY PRECAUTIONS IN PLACE AND CALL LIGHT WITHIN PATIENTS REACH.
[2021-06-02 10:40] VITALS: BP 101/44
--- NOTE | 2021-06-02 12:00 | NUR ---
PT UP TO CHAIR. PT DENIES ANY NEEDS AT THIS TIME. SAFETY MEASURES MAINTAINED. CALL LIGHT WITHIN PT REACH. WILL CONTINUE TO MONITOR PT
[2021-06-02 15:40] VITALS: BP 113/51
--- NOTE | 2021-06-02 16:00 | NUR ---
PT UP TO CHAIR. PT DENIES PAIN. NO NEEDS AT THIS TIME. SAFETY MEASURES MAINTAINED AND CALL LIGHT WITHIN REACH OF PATIENT. WILL CONTINUE TO MONITOR
[2021-06-02 19:00] VITALS: BP 111/69
--- NOTE | 2021-06-02 19:50 | NUR ---
PATIENT ALERT AND ORIENTED. ABLE TO MAKE NEEDS KNOWN. PLEASANT AND COOPERATIVE WITH CARE. SITTING IN RECLINER. ASSESSMENT COMPLETE. NO COMPLAINTS VOICED. CALL LIGHT AND BELONGINGS WITHIN REACH.
[2021-06-03] VITALS: BP 104/67
--- NOTE | 2021-06-03 02:00 | NUR ---
RESTING IN BED. NO COMPLAINTS VOICED AT THIS TIME. CALL LIGHT WITHIN REACH.
[2021-06-03 04:00] VITALS: BP 93/53
--- NOTE | 2021-06-03 04:30 | NUR ---
RESTING IN BED WITH NO COMPLAINTS. CALL LIGHT REMAINS IN REACH.
[2021-06-03 05:58] LABS: HEMATOCRIT 42.9 % (37.0-47.0); HEMOGLOBIN 13.1 g/dl (12.0-16.0); IMMATURE GRANULOCYTES 0.4 % (0.0-5.0); MEAN CELL VOLUME 85.5 fL CALC (80.0-100.0); MEAN CORPUSCULAR HGB 26.1 pG CALC (26.0-32.0); MEAN CORPUSCULAR HGB CONC 30.5 g/dL CAL (32.0-36.0); NEUT# 11.03 thou/uL (2.00-7.15); RED BLOOD COUNT 5.02 mill/uL (4.20-5.60); RED CELL DISTRI WIDTH 12.9 % (11.5-15.5)
--- NOTE | 2021-06-03 06:00 | NUR ---
IN BED RESTING. NO SIGNS OR SYMPTOMS OF DISTRESS OBSERVED. CALL LIGHT AND BELONGINGS REMAIN WITH PATIENT.
[2021-06-03 06:07] LABS: ALBUMIN 3.1 g/dL (3.2-5.0); ALKALINE PHOSPHATASE 55 u/l (38-126); ANION GAP 11 (6-22 (CALC)); BILIRUBIN, TOTAL 0.5 mg/dL (0.0-1.4); BUN 23 mg/dL (7-17); BUN/CREATININE RATIO 34 (12-20 (CALC)); CARBON DIOXIDE 28 mmol/l (22-30); CHLORIDE 102 mmol/l (95-108); CREATININE 0.7 mg/dL (0.5-1.0); GFR > 60 ML/MIN (>=60 (CALC)); GFR FOR AFR.AMER. > 60 ML/MIN (>=60 (CALC)); POTASSIUM 4.6 mmol/l (3.5-5.1); SGOT/AST 21 u/l (14-36); SODIUM 137 mmol/l (137-146); TOTAL PROTEIN 6.4 g/dL (6.3-8.2)
--- NOTE | 2021-06-03 07:00 | NUR ---
REPORT RECEIVED FROM [facility]
[2021-06-03 09:20] VITALS: BP 100/53
--- NOTE | 2021-06-03 09:20 | NUR ---
PT RESTING IN RECLINER,A&O X3;VS OBTAINED AND ASSESSMENT COMPLETED;PT DENIES ANY CURRENT PAIN OR DISCOMFORTS,PAIN SCALE AND REPORTING EDUCATED;RESPIRATIONS EVEN AND UNLABORED ON O2 @ 6L HF NC & 10L NRB NC, O2 SATS 94%, CLEAR/DIMINISHED LUNG SOUNDS WITH NON-PRODUCTIVE COUGH;ABDOMEN SOFT ON PALPATION AND ACTIVE IN ALL 4 QUADRANTS;STRONG PEDAL PULSES;SKIN INTACT;TELE MONITORING IN PLACE;#22G TO RFA FLUSHED AND PATENT,SITE APPEARS HEALTHY;PT REMAINS IN AIR/CONTACT PRECAUTIONS DUE TO COVID19 DX;PT DENIES ANY ADDITIONAL NEEDS AND IS ENCOURAGED TO CALL FOR ASSISTANCE IF NEEDED;FALL PRECAUTIONS IN PLACE WITH BED IN THE LOWEST POSITION AND CALL LIGHT IN REACH;WILL CONTINUE TO MONITOR
--- NOTE | 2021-06-03 10:54 | NUR ---
AT BEDSIDE DISCUSSING POC.
--- NOTE | 2021-06-03 11:17 | NUR ---
Patient underwent PT intervention today. Patient did B LE AROM exercises doing hip flexion, hip adduction, hip abduction, hamstring curls, ankle pumps, and knee extension for 10 reps x 2 sets with occasional verbal and tactile cuing to help decrease trick movements and fall risks. Patient participated with log rolling bed mobility and sit to stand push off transfers with occasional verbal and tactile cuing to help decrease fatigue and fall risks.
--- NOTE | 2021-06-03 11:20 | NUR ---
PT OOB RESTING IN RECLINER;RESPIRATIONS EVEN AND UNLABORED ON 6L HF NC AND 10L NRB;PT DENIES ANY CURRENT PAIN OR DISCOMFORTS;TELE MONITORING IN PLACE;IV SITE PATENT;PT DENIES ANY ADDITIONAL NEEDS AND IS ENCOURAGED TO CALL FOR ASSISTANCE IF NEEDED;FALL PRECAUTIONS REMAIN IN PLACE WITH CALL LIGHT IN REACH;WILL CONTINUE TO MONITOR
[2021-06-03 12:03] VITALS: BP 124/39
--- NOTE | 2021-06-03 13:50 | NUR ---
PT OOB RESTING IN RECLINER;RESPIRATIONS REMAIN EVEN AND UNLABORED ON 6L HF NC AND 10L NRB, O2 SATS 95% AND 6L HF TITRATED TO 5L AT THIS TIME;PT ENCOURAGED TO CALL FOR ASSISTANCE IF NEEDED;CALL LIGHT IN REACH;WILL CONTINUE TO MONITOR
--- NOTE | 2021-06-03 15:10 | NUR ---
PT OOB RESTING IN RECLINER;RESPIRATIONS EVEN AND UNLABORED ON 5L HF NC AND 10L NRB, O2 SATS 93% AND NRB TITRATED TO 9L AT THIS TIME;PT DENIES ANY CURRENT PAIN OR DISCOMFORTS;TELE MONITORING IN PLACE;IV SITE PATENT;PT ENCOURAGED TO CALL FOR ASSISTANCE IF NEEDED;FALL PRECAUTIONS IN PLACE WITH CALL LIGHT IN REACH;WILL CONTINUE TO MONITOR
[2021-06-03 16:45] VITALS: BP 94/50
--- NOTE | 2021-06-03 16:45 | NUR ---
PT MEDICATED WITH PRN ROBITUSSIN AC AT THIS TIME PER REQUEST FOR COUGH,WILL CONTINUE TO MONITOR FOR EFFECTIVENESS
[2021-06-03 19:00] VITALS: BP 95/45
--- NOTE | 2021-06-03 19:13 | NUR ---
SBAR REPORT RECEIVED FROM CLAIRE CASILLAS.
--- NOTE | 2021-06-03 23:11 | NUR ---
PT RECEIVED FROM ED TO ROOM 273. ARRIVES VIA STRETCHER ACCOMPANIED BY jorge COLBERT. PT AMBULATORY TO BED. GAIT UNSTEADY. PT DENIES PAIN AT THIS TIME. ORIENTED TO UNIT, ROOM, CALL FREEMAN, LIGHTS, TV. ICE WATER PROVIDED. CALL FREEMAN WITHIN REACH. AGREES TO CALL PRN.
[2021-06-04] VITALS: BP 99/59
[2021-06-04 04:00] VITALS: BP 96/55
--- NOTE | 2021-06-04 04:28 | NUR ---
RESTING QUIETLY BED IN LOW POSITION. NO DISTRESS NOTED, CALL LIGHT WITHIN REACH.
--- NOTE | 2021-06-04 04:32 | NUR ---
LATE ENTRY FOR 06/03 @ 2159 PATIENT SITTING UP IN BED WATCHING TV. PATIENT HAS DRY, NON PRODUCTIVE COUGH. ALBUTEROL INHALER USED, INSTRUCTED ON USE OF INCENTIVE SPIROMETER WHILE AWAKE AND INFORMED OF BENEFITS. PATIENT VERBALIZES UNDERSTANDING HOWEVER EXPRESSES THAT SHE DOES NOT LIKE TO USE THE INSTRUMENT BECAUSE IT CAUSES DISCOMFORT. NO DISTRESS NOTED AT THIS TIME. DENIES PAIN. CALL LIGHT WITHIN REACH INSTRUCTED TO CALL FOR ASSISTANCE.
[2021-06-04 05:32] LABS: HEMATOCRIT 39.3 % (37.0-47.0); HEMOGLOBIN 12.2 g/dl (12.0-16.0); IMMATURE GRANULOCYTES 0.4 % (0.0-5.0); MEAN CELL VOLUME 85.6 fL CALC (80.0-100.0); MEAN CORPUSCULAR HGB 26.6 pG CALC (26.0-32.0); NEUT# 9.61 thou/uL (2.00-7.15); RED BLOOD COUNT 4.59 mill/uL (4.20-5.60); RED CELL DISTRI WIDTH 12.9 % (11.5-15.5)
[2021-06-04 05:58] LABS: ALBUMIN 2.9 g/dL (3.2-5.0); ALKALINE PHOSPHATASE 58 u/l (38-126); ANION GAP 8 (6-22 (CALC)); BILIRUBIN, TOTAL 0.6 mg/dL (0.0-1.4); BUN 21 mg/dL (7-17); BUN/CREATININE RATIO 28 (12-20 (CALC)); C-REACTIVE PROTEIN 3.5 mg/dL (0-0.9); CARBON DIOXIDE 31 mmol/l (22-30); CHLORIDE 101 mmol/l (95-108); CREATININE 0.7 mg/dL (0.5-1.0); GFR > 60 ML/MIN (>=60 (CALC)); GFR FOR AFR.AMER. > 60 ML/MIN (>=60 (CALC)); POTASSIUM 4.1 mmol/l (3.5-5.1); SGOT/AST 21 u/l (14-36); SODIUM 136 mmol/l (137-146)
--- NOTE | 2021-06-04 08:00 | NUR ---
PT AWAKE, ALERT AND ORIENTED. PT UP TO BEDSIDE CHAIR. PT DENIES ANY NEEDS AT THIS TIME. VS AND ASSESSMENT COMPLETE. RESPIRATIONS EVEN AND NONLABORED. PT ENCOURAGED TO USE INCENTIVE SPIROMETER. ABDOMEN ROUND SOFT AND NONTENDER. IV INTACT, FLUSHED AND PATENT. PT ON CONTINOUS 02. SAFETY PRECATIONS IN PLACE AND CALL LIGHT WITHIN PATIENTS REACH. WILL MONITOR PATIENT CLOSELY
[2021-06-04 11:17] VITALS: BP 96/53
--- NOTE | 2021-06-04 12:00 | NUR ---
PT UP TO BEDSIDE CHAIR. PT DENIES ANY NEEDS AT THIS TIME. IV INTACT. SAFETY PRECAUTIONS MAINTAINED AND CALL LIGHT WITHIN PATIENTS REACH. WILL CONTINUE TO MONITOR
--- NOTE | 2021-06-04 14:56 | NUR ---
Patient participated with PT intervention today. Patient did B LE seated AROM exercises doing hip flexion, hip adduction, hip abduction, hamstring curls, knee extension, and ankle pumps for 10 reps x 2 sets with occasional verbal and tactile cuing to help decrease trick movements and fall risks. Patient also participated with log rolling bed mobility ADLs (1 to 2 reps) with occasional verbal and tactile cuing to help decrease fall risks.
[2021-06-04 15:13] VITALS: BP 103/43
--- NOTE | 2021-06-04 16:00 | NUR ---
PT ALERT AND ORIENTED. PT DENIES ANY NEEDS AT THIS TIME. SAFETY MEASURES MAINTAINED. CALL LIGHT WITHIN PATIENT REACH. WILL CONTINUE TO MONITOR
--- NOTE | 2021-06-04 19:25 | NUR ---
JAVAD RECEIVED FROM LISA COLBERT
[2021-06-04 20:44] VITALS: BP 100/61
--- NOTE | 2021-06-04 20:58 | NUR ---
PATIENT OOB TO CHAIR WATCHING TV. ALERT AND ORIENTED. DENIES PAIN, NO DISTRESS NOTED. ASSESSMENT COMPLETE, MEDS GIVEN. CALL LIGHT WITHIN REACH, INSTRUCTED TO CALL FOR ASSISTANCE.
--- NOTE | 2021-06-05 01:53 | NUR ---
RESTING QUIETLY EYES CLOSED. BED IN LOW POSITION LOCKED. CALL LIGHT WITHIN REACH.
[2021-06-05 05:23] VITALS: BP 100/62
--- NOTE | 2021-06-05 05:27 | NUR ---
RESTING QUIETLY. NO CONCERNS EXPRESSED. CALL LIGHT WITHIN REACH.
--- NOTE | 2021-06-05 07:10 | NUR ---
REPORT FROM Shilpa WRIGHT RN. ASSUMED PT CARE.
--- NOTE | 2021-06-05 08:20 | NUR ---
PT NOTED SITTING UP IN CHAIR AT BEDSIDE. NO APPARENT DISTRESS NOTED. O2 @ 5L/M VIA NC WITH VENTI MASK @9L/M . PT DENIES ANY PAIN OR DISCOMFORT. ASSISTED PT UP TO BSC AT THIS TIME. CALL LIGHT WITHIN REACH. WILL CONTINUE TO MONITOR.
[2021-06-05 08:42] VITALS: BP 111/68
--- NOTE | 2021-06-05 10:45 | NUR ---
REPORT FROM Shilpa WRIGHT RN. ASSUMED PT CARE.
--- NOTE | 2021-06-05 12:10 | NUR ---
LUNCH TRAY PROVIDED. NO APPARENT DISTRESS NOTED. BSC EMPTIED AT THIS TIME. PT DENIES ANY CURRENT WANTS OR NEEDS. CURRENT O2 SAT 94%. NO CHANGES TO CURRENT O2 SETTINGS. CALL LIGHT WITHIN REACH. WILL CONTINUE TO MONITOR.
[2021-06-05 12:20] VITALS: BP 98/60
--- NOTE | 2021-06-05 14:00 | NUR ---
PERSONAL BELONGINGS DELIVERED TO NURSES STATION, GIVEN TO PT AT THIS TIME.
[2021-06-05 15:02] VITALS: BP 123/57
--- NOTE | 2021-06-05 17:47 | NUR ---
PT NOTED SITTING UP IN CHAIR. NO APPARENT DISTRESS NOTED. CALL LIGHT WITHIN REACH. WILL CONTINUE TO MONITOR.
--- NOTE | 2021-06-05 20:00 | NUR ---
PATIENT AWAKE ALERT SITTING UP IN CHAIR. NO COMPLAINTS O2 5L HF N/C/9L VENTI MASK IN PLACE. NO ACUTE DISTRESS OBSERVED. ON TELEMETRY. HR REG. VAD S/L. ASSESSMENT COMPLETED AND CHARTED.
[2021-06-05 20:45] VITALS: BP 101/48
--- NOTE | 2021-06-06 00:06 | NUR ---
NO ACUTE DISTRESS NOTED. RESTING QUIETLY.
[2021-06-06 01:17] VITALS: BP 102/67
[2021-06-06 04:35] VITALS: BP 100/59
--- NOTE | 2021-06-06 04:46 | NUR ---
PATIENT RESTING QUIETLY. NO ACUTE DISTRESS.
[2021-06-06 05:26] LABS: HEMATOCRIT 39.6 % (37.0-47.0); HEMOGLOBIN 12.4 g/dl (12.0-16.0); IMMATURE GRANULOCYTES 0.3 % (0.0-5.0); MEAN CELL VOLUME 85.5 fL CALC (80.0-100.0); MEAN CORPUSCULAR HGB 26.8 pG CALC (26.0-32.0); MEAN CORPUSCULAR HGB CONC 31.3 g/dL CAL (32.0-36.0); NEUT# 10.63 thou/uL (2.00-7.15); RED BLOOD COUNT 4.63 mill/uL (4.20-5.60)
[2021-06-06 05:46] LABS: ALBUMIN 3.1 g/dL (3.2-5.0); ALKALINE PHOSPHATASE 71 u/l (38-126); ANION GAP 9 (6-22 (CALC)); BUN 16 mg/dL (7-17); BUN/CREATININE RATIO 28 (12-20 (CALC)); C-REACTIVE PROTEIN 5.4 mg/dL (0-0.9); CARBON DIOXIDE 29 mmol/l (22-30); CHLORIDE 102 mmol/l (95-108); CREATININE 0.6 mg/dL (0.5-1.0); GFR > 60 ML/MIN (>=60 (CALC)); GFR FOR AFR.AMER. > 60 ML/MIN (>=60 (CALC)); POTASSIUM 4.2 mmol/l (3.5-5.1); SGOT/AST 25 u/l (14-36); SODIUM 135 mmol/l (137-146); TOTAL PROTEIN 6.4 g/dL (6.3-8.2)
[2021-06-06 05:48] LABS: BILIRUBIN, TOTAL 0.3 mg/dL (0.0-1.4)
--- NOTE | 2021-06-06 06:20 | NUR ---
PATIENT'S VAD IS DUE TO BE CHANGED. ATTEMPTED IV START X2 WITHOUT SUCCESS. PATIENT TOLERATED WELL. #22 RFA REMAINS. PATENT. DRESSING CDI.
--- NOTE | 2021-06-06 07:00 | NUR ---
RECIEVED REPORT FROM FILEMON ROTH
--- NOTE | 2021-06-06 08:15 | NUR ---
PT SITTING ON BSC. ASKING FOR A COUPLE MIN. RACING MECHANIC TO RETRUN TO COMPLETE ASSESSMENT.
[2021-06-06 09:21] VITALS: BP 113/61
--- NOTE | 2021-06-06 09:21 | NUR ---
PT RESTING IN RECYLINER. ASSESSMENT AND VITALS COMPLETED. BP 113/61, HR 114, O2 91% ON 11L 40% VENTI MASK AND 4L NC. RESPIRATIONS REMAINS SHALLOW. LUNG SOUNDS ARE CLEAR.NONPRODUCTIVE COUGH NOTED. HEART RHYTHM NORMAL WITH TELE IN PLACE, SR PER ER MONITORING. BOWEL SOUNDS ARE ACTIVE, BM REPORTED. #22G RFA FLUSHED, SITE APPEARS HEALTHY AND PATENT. PT INFORMED OF SITE DUE TO BE CHANGED. SKIN INTACT. PULSES STRONG. PT DENIES OF ANY PAINS OR DISCOMFORTS. REQUEST FOR COUGH MED, NEW ORDER TO BE OBTAINED. ALL SAFETY PRECAUTIONS ARE IN PLACE WITH CALL LIGHT IN REACH. AIR/CONTACT PRECAUTIONS. WILL CONTINUE TO MONITOR.
[2021-06-06 10:46] VITALS: BP 111/61
--- NOTE | 2021-06-06 10:49 | NUR ---
DR DELGADO AND NENA,ANKASANDRA AT BEDSIDE
--- NOTE | 2021-06-06 11:15 | NUR ---
UPDATE PROVIDED TO SISTER IN LAW. APPROVAL OF GIVING PASSCODE FROM PT.
--- NOTE | 2021-06-06 11:51 | NUR ---
PT SITTING IN RECYLINER. RESPIRTATIONS ARE EVENAND UNLABORED ON VENTI MASK AND NC. O2 INCREASED TO 9L HIGH FLOW NC AND VENTI MASK REMOVED FOR LUNCH, O2 91%. RESPIRATIONS SHALLOW. PT INSTRUCTED TO REAPPLIED MASK AND CALL WRITERB IF NEEDED. PT VERBLAIZED UNDERSTANDING. PT REQUEST FOR CHEESE BURGER. DEITARY CALLED. PT DENIES OF ANY ADIDITONAL NEEDS AT THIS TIME. TELE MONITORING IN PLACE. ALL SAFETY PREACUTIONS ARE IN PLACE WITH CALL LIGHT IN REACH. WILL CONTINUE TO MONITOR.
--- NOTE | 2021-06-06 12:46 | NUR ---
CHEESE BURGER PROVIDED BY DIETARY. RESIRATIONS REMAINS EVEN AND UNLABORED ON 9L HIGH FLOW NC. TELE REMOVED PER ORDER. PT DENIE SOF ANY ADDITIONAL NEEDS. ALL SAFETY PRECAUTIONS ARE IN PLACR WITH CALL LIGHT IN REACH. WILL CONTINUE TO MONITOR
--- NOTE | 2021-06-06 13:06 | NUR ---
PT REMAINS 91% ON 9L HIGH FLOW NC. RESPIRATIONS REMAINS EVEN AND UNLABORED. PT DENIES OF ANY NEEDS. ALL SAFETY PRECAUTIONS ARE IN PLACE. WILL CONTINUE TO MONITOR
[2021-06-06 14:49] VITALS: BP 109/59
--- NOTE | 2021-06-06 16:30 | NUR ---
[facility] RESPIRATIONS ARE SHALLOW. O2 84% BUT SLOWLY DALI TO 91% WHILE RESTING ON 10L HIGH FLOW NC. #22G RFA REMAINS IN PLACE. PT DENIES OF ANY PAINS OR DISCOMFORTS AT THIS TIME. ALL SAFETY PRECAUTIONS ARE IN PLACE WITH CALL LIGHT IN REACH.AIR/CONTACT PREACUTIONS. WILL CONTINUE TO MONITOR.
--- NOTE | 2021-06-06 18:22 | NUR ---
NEW #22G LFA STARTED, SITE APPEARS HEALTHY AND PATENT. #22G RFA REMOVED WITH CATHATER STILL INTACT. PT TOLERATED WELL.
[2021-06-06 19:00] VITALS: BP 103/44
--- NOTE | 2021-06-06 20:55 | NUR ---
PT MEDICATED ORDERS PROVIDE AND ASSESSMENT COMPLETED AT THIS TIME. OXYGEN SAT 92% ON 10LNC hIGH FLOW. POC, DISCHARGE AND NEEDS FOR TONIGHT DISCUSSED AT THIS TIME. I.S. DEMONSTRATED, VERY DIFFICULT FOR HER TO DEMONSTRATE DUE TO CONSTAND COUGHING WHEN DEEP BREATHING, LOW VOLUME BREATHS MEASURED. PT MEDICATED FOR COUGH. OFFERED SNACKS, DRINKS, SHE REPORTED THAT HER BROUGHT HER PLENTY OF SNACKS, ICE OFFERED, DENIED NEED. BED REFRESHED WHILE SHE WAS SEATED IN RECLINER AND NEW PILLOWS PROVIDED. PT LEFT IN RECLINER WITH LIGHTS AND TV ON. ENCOURAGED TO CALL NEEDS ARISE, VERBALIZED UNDERSTANDING.
[2021-06-07] VITALS: BP 96/42
--- NOTE | 2021-06-07 00:09 | NUR ---
V/S assessed, no s/o distress at this time. Pt denies any needs. call light w/in reach.
--- NOTE | 2021-06-07 02:30 | NUR ---
Pt appears to be sleeping, lights and tv are off. Resp appear even and non-labored. No s/o distress.
[2021-06-07 04:00] VITALS: BP 102/44
--- NOTE | 2021-06-07 07:00 | NUR ---
RECIEVED REPORT FROM FILEMON TINEO
[2021-06-07 07:55] VITALS: BP 107/63
--- NOTE | 2021-06-07 08:01 | NUR ---
PT RESTING IN SEMI FOWLERS POASITION. ASSESSMENT AND VITALS COMPLETED. PT IS A/O X3. RESPIRATIONS ARE SHALLOW, 90% ON 11L HIGH FLOW NC. VENTI MASK PLACED AT BEDSIDE. LUNG SOUNDS CLEAR, POOR INSPIRATION NOTED. PT EDUCATED ON I.S/CHAIR AND PRONING. PT VERBALIZED UNDERSTANDING. HEART RHYTHM NORMAL. BOWEL SOUNDS ARE ACTIVE, LBM 06/07/21. PULSES STRONG. SKIN INTACT. PT DENIES OF ANY PAINS OR DISCOMFORTS AT THIS TIME. ALL SAFETY PRECAUTIONS ARE IN PLACE WITH CALL LIGHT IN REACH. AIR/CONTACT PRECAUTIONS.WILL CONTINUE TO MONITOR.
--- NOTE | 2021-06-07 08:48 | NUR ---
REASSESSMENT OF O2 RESULTING IN 93% ON 10L HIGH FLOW NC.
--- NOTE | 2021-06-07 11:53 | NUR ---
Patient underwent PT intervention today. Patient did B LE seated AROM exercises: hip flexion, hip adduction, hip abduction, hamstring curls, knee extension, gluteal squeezes, and ankle pumps for 20 reps with occasional verbal and tactile cuing to help decrease trick movements and fall risks. Patient also participated with log rolling bed mobility and sit to stand push off transfer ADLs (1 to 3 reps) with verbal and tactile cuing to help decrease fall risks.
--- NOTE | 2021-06-07 13:31 | NUR ---
PT RESTING IN RECYLINER EATING LUNCH. RESPIRATIONS REMAIN SHALLOW ON 8L HIGH FLOW NC, 90-91%. #22G LFA REMAINS IN PLACE. PT UPDATED ON DC STATUS. PT VERBALIZED UNDERSTANDING. PT DENIES OF ANY PAINS OR DISCOMFORTS AT THIS TIME. ALL SAFETY PRECAUTIONS ARE IN PLACE WITH CALL LIGHT IN REACH. AIR/CONTACT PRECAUTIONS. WILL CONTINUE TO MONITOR
[2021-06-07 15:00] VITALS: BP 102/50
--- NOTE | 2021-06-07 16:48 | NUR ---
PT SITTING UP ON SIDE OF BED. RESPIRATIONS ARE SHALLOW. PT STATES SHE JUST GOT BACK FROM USING BSC. #22G LFA REMAINS IN PLACE. ROBITUSSIN ADMINISTERED. PT DENIES OF ANY PAINS OR DISCOMFORTS AT THIS TIME. ALL SAFETY PRECAUTIONS ARE IN PLACE WITH CALL LIGHT IN REACH. WILL CONTINUE TO MONITOR.
[2021-06-07 19:00] VITALS: BP 106/69
--- NOTE | 2021-06-07 20:35 | NUR ---
PT MEDICATED ORDERS PROVIDE AND FOR COUGH PER AVAILABLE ORDERS. PT OXYGEN STABLE AND MAINTAINING @93-94% ON hIGH FLOW NC6L. PT UPRIGHT IN RECLINER. BECOMES SOB AND COUGH SPASMS UPON I.S. DEMONSTRATION, RE-EDUCATED TO ITS USE. SHE ADMITTED TO NOT USING IT, BUT I ENCOURAGE HER JUST ONE SLOW GENTAL DEEP BREATH ONE TIME EVERY 10 MINUTES WHILE WATCHING TV, SHE VERBALIZED NOT HAVING UNDERSTOOD ITS USE AND STATES SHE WILL ATTEMPT TO DO THAT. POC DISCUSSED, PT WANTS TO TRY AND TRANSITION BACK TO USING HER CPAP FOR SLEEP TONIGHT. I INFORMED HER THAT I WILL NOTIFY RESP FOR ADVICE AND ASSISTANCE. RESP CONTACTED.
--- NOTE | 2021-06-07 22:20 | NUR ---
CHECKED ON PT, SHE WAS BACK IN THE BED AND JUST PLACING HER CPAP ON. ASSISTANCE PROVIDED. RESP HAD SET IT UP FOR HER TO 6L. 93% O2 SAT MAINTAINED WHILE I WAS IN THE ROOM. PT DROPPED TO 84 WHILE CHANGING OXYGEN SUPPLY.
--- NOTE | 2021-06-07 23:25 | NUR ---
PT SLEEPING WITH CPAP ON W/6L 02. OXYGEN SAT 98% AT THIS TIME. HIGH FOWLERS POSITION IN THE BED.
[2021-06-08] VITALS (7 sets, daily range): BP systolic 96–120; BP diastolic 51–67
--- NOTE | 2021-06-08 01:40 | NUR ---
PT O2 SAT 97% ON 6L/CPAP, FOWLERS POSITION IN BED. PT APPEARS TO BE RESTING COMFORTABLY, DENIES ANY NEEDS.
--- NOTE | 2021-06-08 04:05 | NUR ---
Pt v/s assessed, pt was sleeping, awoke to my voice as I entered the room. No s/o distress at this time. 02 sats 92-95% on 6L/CPAP, Fowlers position in the bed.
[2021-06-08 05:40] LABS: HEMATOCRIT 36.6 % (37.0-47.0); HEMOGLOBIN 11.5 g/dl (12.0-16.0); IMMATURE GRANULOCYTES 0.4 % (0.0-5.0); MEAN CELL VOLUME 85.9 fL CALC (80.0-100.0); MEAN CORPUSCULAR HGB CONC 31.4 g/dL CAL (32.0-36.0); NEUT# 8.55 thou/uL (2.00-7.15); RED BLOOD COUNT 4.26 mill/uL (4.20-5.60); RED CELL DISTRI WIDTH 13.4 % (11.5-15.5)
[2021-06-08 06:05] LABS: ALBUMIN 3.1 g/dL (3.2-5.0); ALKALINE PHOSPHATASE 64 u/l (38-126); ANION GAP 9 (6-22 (CALC)); BUN 20 mg/dL (7-17); BUN/CREATININE RATIO 29 (12-20 (CALC)); C-REACTIVE PROTEIN 1.6 mg/dL (0-0.9); CARBON DIOXIDE 30 mmol/l (22-30); CHLORIDE 102 mmol/l (95-108); CREATININE 0.7 mg/dL (0.5-1.0); GFR > 60 ML/MIN (>=60 (CALC)); GFR FOR AFR.AMER. > 60 ML/MIN (>=60 (CALC)); POTASSIUM 4.3 mmol/l (3.5-5.1); SGOT/AST 28 u/l (14-36); SODIUM 137 mmol/l (137-146); TOTAL PROTEIN 6.2 g/dL (6.3-8.2)
[2021-06-08 06:14] LABS: BILIRUBIN, TOTAL 0.5 mg/dL (0.0-1.4)
--- NOTE | 2021-06-08 07:00 | NUR ---
RECIEVED REPORT FROM FILEMON TINEO
--- NOTE | 2021-06-08 08:07 | NUR ---
PT RESTING IN SEMI FOWLERS POSITION. PT IS A/O X3. ASSESSMENT AND VITALS COMPLETED. BP 120/62, HR 91, O2 93% ON 4L NC. REPSIRAITONS ARE EVEN AND UNLABORED. LUNG SOUNDS ARE CLEAR. HEART RHYTHM IS NORMAL. BOWEL SOUNDS ARE ACTIVE.. #22G LFA FLUSHED, SITE APPEARS HEALTHY AND PATENT. SKIN INTACT. PT DENIES OF ANY PAINS OR DISCOMFORTS. PT STATES SHE FEELS THE BEST SHE EVER HAS WHILE BEING IN HOSPITAL. ALL SAFETY PRECAUTIONS ARE IN PLACE WITH CALL LIGHT IN REACH. AIR/CONTACT. WILL CONTINUE TO MONITOR
--- NOTE | 2021-06-08 09:05 | NUR ---
DR NOLAND AT BEDSIDE
--- NOTE | 2021-06-08 09:30 | NUR ---
WALK TEST COMPLETED. PT 89% ON 4L NC. ATTEMPTED TO WALK. O2 87% WHEN SITTING UP ON SIDE OF BED. PT REQUESTED TO SIT IN CHAIR, ASSITED BY IN STORE MARKETING ASSOCIATE. O2 DECREASED TO 78%. O2 INCREASED TO 87% UPON RESTING ON 4L NC. O2 INCREASED TO 6L HIGH FLOW NC, 92%. RESPIRATIONS SHALLOW. PT FRUSTRATED, EXPRESSES WANTING TO GO HOME. IN STORE MARKETING ASSOCIATE ENSUREED PT THAT SHE HAS MADE SO MUCH PROGRESS AND TIME IS NEEDED. DR NOLAND NOTIFIED OF WALK TEST RESULTS.
--- NOTE | 2021-06-08 11:27 | NUR ---
Patient underwent PT intervention today. Patient worked on B LE seated AROM exercises doing hip flexion, hip adduction, hip abduction, hamstring curls, knee extension, ankle pumps, and gluteal squeezes for 15 reps x 2 sets with occasional verbal and tactile cuing to help decrease trick movements and fall risks. Patient participated with log rolling bed mobility ADLs and sit to stand push off transfers for 1 to 3 reps with occasional verbal and tactile cuing to help decreasee trick movements and fall risks.
--- NOTE | 2021-06-08 12:40 | NUR ---
PT SITTING UP IN REYCLINER. RESPIRATIONS ARE EVEN AND UNLABORED ON 6L NC, 98%. O2 95% ON 4L NC. PT FRUSTRATED WITH NO BEING ABLE TO GO HOME AND WAITING FOR REHAB PLACEMENT. PT REASSURED THAT IT WILL HAPPENS, SHE JUST NEEDS TO GIVE IT TIME. CM NOTIFIED TO UPDATE PT ON STATUS. WALK TEST T BE REATTEMPTED. ALL SAFETY PRECAUTIONS ARE IN PLACE WITH CALL LIGHT IN REACH. WILL CONTINUE TO MONITOR.
--- NOTE | 2021-06-08 13:32 | NUR ---
REATTEMPTED WALK TEST. O2 DECREASED TO 85% WHEN SITTING UP. PT RESTING IN RECYLINER. O2 91% ON 4L NC. REPSIRATIONS ARE EVEN AND UNLABORED. ALL SAFETY PRECAUTIONS ARE IN PLACE WITH CALL LIGHT IN REACH. WILL CONTINUE TO MONITOR
--- NOTE | 2021-06-08 16:03 | NUR ---
PT SITTING UP IN RECYLINER WATCHING TV. REPIRATIONS REMAINS EVEN AND UNLABORED ON 4L NC. #22G RFA REMAINS IN PLACE. PT INFORMED OF POSSIBLE CALL FROM [facility] WHEN AUTHORIZATION IS APPROVED. PT VERBALIZED UNDERSTANDING. PT DENIES OF ANY PAINS OR DISCOMFORTS AT THIS TIME. ALL SAFETY PRECAUTIONS ARE IN PLACE WITH CALL LIGHT IN REACH. WILL CONTINUE TO MONITOR
--- NOTE | 2021-06-08 20:00 | NUR ---
PHYSICAL ASSESMENT COMPLETE. PT CURRENTLY DENIES PAIN OR DISCOMFORT. SCHEDULED MEDICATIONS AND PRN MEDICATION ADMINISTERED, SEE E-MAR. PT DENIES ANY NEEDS AT THIS TIME. PLAN OF CARE REVIEWED, PT DENIES QUESTIONS, VERBALIZES UNDERSTANDING. TELEMENTRY PLACED PER ORDERS. ITEMS WITHIN REACH, BED LOCKED IN LOW POSITION W/ BEDRAILS UP X2. CALL FREEMAN WITHIN REACH, AGREES TO CALL PRN.
[2021-06-09 00:10] VITALS: BP 115/69
[2021-06-09 04:26] VITALS: BP 103/54
[2021-06-09 08:30] VITALS: BP 110/60
--- NOTE | 2021-06-09 11:07 | NUR ---
Patient participated with PT intervention today. Patient did B LE seated AROM exercises doing hip flexion, hip adduction, hip abduction, hamstring curls, knee extension, gluteal squeezes, and ankle pumps for 15 reps x 2 sets with occasional verbal and tactile cuing to help decrease fall risks. Patient did log rolling bed mobility and sit to stand push off transfers with verbal and tactile cuing for 1 to 3 reps to help decrease trick movements and fall risks.
--- NOTE | 2021-06-09 12:27 | NUR ---
BEDSIDE REPORT RECEIVED AT CHANGE OF SHIFT. ASSESSMENT PERFORMED. PT STILL HAVEING ISSUES WITH SOB UPON EXERTION LITTLE TALKING. 02 ON 4LPM HF SAT 87-90%. PT REQUESTED INCREASE IN O2 FOR HER TO PERFORM ADLS THIS AM. NO FURTHER DISTRESS/COMPLAINTS. WILL CONTINUE TO MONITOR.
[2021-06-09 14:15] VITALS: BP 125/61
--- NOTE | 2021-06-09 14:34 | NUR ---
6 MINUTE WALK TEST PERFORMED. PT TOLERATED WITH O2 SAT BETWEEN 83-88% ON 6 LPM HF O2. HR INCREASED TO 140'S WITH EXERTION.
[2021-06-09 19:00] VITALS: BP 91/71
[2021-06-10 04:00] VITALS: BP 99/69
[2021-06-10 05:11] LABS: HEMATOCRIT 39.5 % (37.0-47.0); HEMOGLOBIN 12.1 g/dl (12.0-16.0); IMMATURE GRANULOCYTES 0.9 % (0.0-5.0); MEAN CELL VOLUME 85.9 fL CALC (80.0-100.0); MEAN CORPUSCULAR HGB 26.3 pG CALC (26.0-32.0); MEAN CORPUSCULAR HGB CONC 30.6 g/dL CAL (32.0-36.0); NEUT# 9.64 thou/uL (2.00-7.15); RED BLOOD COUNT 4.6 mill/uL (4.20-5.60); RED CELL DISTRI WIDTH 13.6 % (11.5-15.5)
[2021-06-10 05:41] LABS: ALBUMIN 3.3 g/dL (3.2-5.0); ALKALINE PHOSPHATASE 65 u/l (38-126); ANION GAP 9 (6-22 (CALC)); BILIRUBIN, TOTAL 0.5 mg/dL (0.0-1.4); BUN 22 mg/dL (7-17); BUN/CREATININE RATIO 29 (12-20 (CALC)); C-REACTIVE PROTEIN 0.6 mg/dL (0-0.9); CARBON DIOXIDE 29 mmol/l (22-30); CHLORIDE 105 mmol/l (95-108); CREATININE 0.8 mg/dL (0.5-1.0); GFR > 60 ML/MIN (>=60 (CALC)); GFR FOR AFR.AMER. > 60 ML/MIN (>=60 (CALC)); POTASSIUM 4.4 mmol/l (3.5-5.1); SGOT/AST 30 u/l (14-36); SODIUM 138 mmol/l (137-146); TOTAL PROTEIN 6.6 g/dL (6.3-8.2)
[2021-06-10 09:01] VITALS: BP 109/52
--- NOTE | 2021-06-10 09:01 | NUR ---
ASSESSMENT DONE. PATIENT IS ALERT AND ORIENT X3. PATIENT DENIES PAIN. PATIENT HAS A DRY COUGH. PATIENT STATED THAT WHEN SHE MOVES SHE FEELS SOB. O2 4L HFNC AND O2 READING 95%. PATIENT DENIES NEEDS AT THIS TIME. CALL LIGHT IN REACH.
--- NOTE | 2021-06-10 12:07 | NUR ---
Patient participated with PT intervention today. Patient did seated B LE AROM exercises today: hip flexion, hip adduction, hip abduction, hamstring curls, knee extension, and ankle pumps for 10 reps x 2 sets with occasional verbal and tactile cuing to help decrease trick movements and fall risks. Patient carried out log rolling bed mobility and sit to stand push off transfer ADLs (1 to 3 reps) with occasional verbal and tactile cuing to help decrease trick movements and fall risks.
--- NOTE | 2021-06-10 13:00 | NUR ---
PATIENT IS RESTING IN BED WITH NO DISTRESS NOTED. PATIENT O2 READING 93% VIA 4L HFNC. PATIENT DENIES NEEDS AT THIS TIME. CALL LIGHT IN REACH.
[2021-06-10 15:02] VITALS: BP 129/68
--- NOTE | 2021-06-10 16:45 | NUR ---
PATIENT IS SITTING IN RECLINER WITH NO DISTRESS NOTED. O2 READING 93% VIA 4L HFNC. PATIENT DENIES NEEDS AT THIS TIME. CALL LIGHT IN REACH.
[2021-06-10 19:20] VITALS: BP 126/55
--- NOTE | 2021-06-10 19:52 | NUR ---
PT SITTING IN RECLINER AT BEDSIDE, NO SIGNS OF DISTRESS NOTED, RESP EVEN AND UNLABORED. PT ON 02 4L HI MARLON HUMIDIFIED, NOTED CPAP AT BEDSIDE FROM HOME. DISCUSSED POC, PT VOICES NO NEEDS OR COMPLAINTS AT THIS TIME. SKIN INTACT, IV SITE PATENT, FLUSHES WELL. ASSESSMENT COMPLETED,PT MEDICATED PER NOV. CALL LIGHT IN REACH,CONTINUE TO MONITOR.
--- NOTE | 2021-06-10 22:23 | NUR ---
PT RESTING IN BED, NO SIGNS OF DISTRESS NOTED, PT STILL ON 02 NC AT THIS TIME, WATCHING TV.VOICES NO NEEDS OR COMPLAINTS AT THIS TIME, CALL LIGHT IN REACH,CONTINUE TO MONITOR.
--- NOTE | 2021-06-11 00:22 | NUR ---
PT RESTING IN BED WITH EYES CLOSED, CPAP IN PLACED, NO SIGNS OF DISTRESS NOTED, RESP EVEN AND UNLABORED. CALL LIGHT IN REACH,CONTINUE TO MONITOR.
[2021-06-11 04:00] VITALS: BP 102/45
--- NOTE | 2021-06-11 04:00 | NUR ---
PT RESTING IN BED WITH EYES CLOSED, CPAP IN PLACED, NO SIGNS OF DISTRESS NOTED, RESP EVEN AND UNLABORED. CALL LIGHT IN REACH,CONTINUE TO MONITOR
[2021-06-11 09:03] VITALS: BP 101/59
--- NOTE | 2021-06-11 09:03 | NUR ---
PT SITTING IN RECLINER. A&O X4. PEDIATRIC OPHTHALMOLOGIST COUGH NOTED AT THIS TIME. CLEAR/DIMINISHED BREATH SOUNDS UPON AUSCULTATION WITH SLIGHT LOWER LOBE CRACKLES. O2 VIA NC @4L HF, PT SUSTAINING 91-92%. HOME CPAP AT BEDSIDE. ACTIVE BOWEL SOUNDS X4 QUADRANTS, BM REPORTED. NO OTHER NEEDS AT THIS TIME. ASSESSMENT COMPLETED. DISCUSSED POC. CALL LIGHT WITHIN REACH. ISOLATION PRECAUTIONS IN PLACE.
[2021-06-11 10:45] VITALS: BP 97/47
--- NOTE | 2021-06-11 13:00 | NUR ---
COVID TEST COMPLETED AT THIS TIME, SAMPLE OBTAINED FROM BOTH NARES. PT TOLERATED WELL. SAMPLE LABELED, DATED, AND TIMED. PT REMAINS SITTING IN THE RECLINER. O2 VIA NC @4L HF REMAINS. NO OTHER NEEDS AT THIS TIME. CALL LIGHT WITHIN REACH.
--- NOTE | 2021-06-11 15:05 | NUR ---
Patient participated with PT intervention today. Patient carried out log rolling bed mobility ADLs, moving both sides with 1 to 2 reps with SBA x 1, did sit to stand push off transfers from reclining chair for 5 reps with SBA x 1, with occasional verbal and tactile cuing to help decrease trick movements and fall risks. Patient was also instructed on proper breathing pattern, from doing 3 segmental breathing inhalation to 2 prolonged inhalation followed by long exhalation to conduct proper air exchange prior to patient preparing to go back home. Patient also did seated B LE AROM exercises doing hip flexion, hip adduction, hip abduction, hamstring curls, knee extension, and ankle pumps for 2 x 15 reps with occasional verbal and tactile cuing to help decrease trick movements and fall risks while trying to improve tolerance to prolonged functional weight bearing ADLs.
[2021-06-11 15:40] VITALS: BP 101/47
--- NOTE | 2021-06-11 16:00 | NUR ---
PT SITTING IN RECLINER. NO NEEDS AT THIS TIME. O2 REMAINS AT 4L HF. CALL LIGHT WITHIN REACH.
--- NOTE | 2021-06-11 17:37 | NUR ---
PT EDUCATED ON THE NEED TO CHANGE IV SITE TO REDUCE RISK OF INFECTION, PT AGREEABLE. #22LFA REMOVED, INTACT UPON REMOVAL. #22G LH INTIATED X1 ATTEMPT BY THIS DRIVE THRU ORDER TAKER, HEALTHY AND PATENT WITH GOOD BLOOD RETURN. PT TOLERATED WELL. NO NEEDS REPORTED AT THIS TIME. O2 VIA NC @4L REMAINS. CALL LIGHT WITHIN REACH.
[2021-06-11 19:30] VITALS: BP 125/60
--- NOTE | 2021-06-11 19:45 | NUR ---
PATIENT ALERT AND ORIENTED. ABLE TO MAKE NEEDS KNOWN. ASSESSMENT COMPLETE. DENIES ANY PAIN OR DISCOMFORT. SITTING IN RECLINER. CALL LIGHT AND BELONGINGS WITHIN REACH.
--- NOTE | 2021-06-12 00:08 | NUR ---
PATIENT RESTING IN BED WITH CPAP ON. NO SIGNS OF DISTRESS. OXYGEN SATURATION AT 98%. NO COMPLAINTS OF PAIN VOICED. CALL LIGHT AND BELONGINGS WITHIN REACH.
[2021-06-12 04:00] VITALS: BP 115/57
--- NOTE | 2021-06-12 04:10 | NUR ---
RESTING IN BED WITH EYES CLOSED. HEAD OF BED ELEVATED PER PATIENT REQUEST. NO SIGNS OF DISTRESS NOTED. NO COMPLAINTS OF PAIN. CALL LIGHT AND BELONGINGS WITHIN REACH.
[2021-06-12 08:35] VITALS: BP 137/50
--- NOTE | 2021-06-12 08:35 | NUR ---
PT SITTING IN CHAIR. A&O X4. NO DISTRESS NOTED. O2 VIA NC @4L HF IN PLACE. CLEAR/DIMINISHED BREATH SOUNDS UPON AUSCULTATION. ACTIVE BOWEL SOUNDS X4 QUADRANTS. BM REPORTED YESTERDAY. NO OTHER NEEDS AT THIS TIME. CALL LIGHT WITHIN REACH.
--- NOTE | 2021-06-12 12:00 | NUR ---
BSSR RECEIVED FROM MALLORY. PT RESTING WITH EYES CLOSED IN CHAIR UPON ENTRANCE. AWAKENS EASILY TO LIGHT VERBAL STIMULATION. PT VSS, CALL LIGHT WITHIN REACH. DENIES NEEDS OR CONCERNS. INTERESTED IN AMBULATING TRIAL WITH OXYGEN. PT CALL LIGHT WITHIN REACH. INSTRUCTED PT TO CALL FOR ASSISTANCE, VERBALIZES UNDERSTANDING.
--- NOTE | 2021-06-12 16:00 | NUR ---
PT SITTING IN BSC WITH O2 @4L. DENIES NEEDS OR CONCERNS. EAGER FOR WALKING TEST. CALL LIGHT WITHIN REACH. INSTRUCTED PT TO CALL FOR ASSISTANCE, VERBALIZES UNDERSTANDING.
[2021-06-12 17:34] VITALS: BP 95/56
[2021-06-12 19:00] VITALS: BP 104/62
--- NOTE | 2021-06-12 19:00 | NUR ---
RECEIVED REPORT FROM NURSE HANNON, ASSUMED PATIENT CARE.
--- NOTE | 2021-06-12 19:30 | NUR ---
PATIENT ALERT ORIENTED, ABLE TO MAKE NEEDS KNOWN, CURRENTLY SITTING IN CHAIR AND WATCHING TV, PATIENT HAS SALINE ON LEFT HAND PATENT AND FLUSHES FLUSHES WELL, LUNG SOUNDS CLEAR/DIMINISHED CURRENTLY ON 4LPM HIGH FLOW NASAL CANULA, PATIENT IS ASKING ABOUT HER CPAP IF OXYGEN IS STILL NEEDS TO BE ON 6LPM, WILL MAKE RESPIRATORY THERAPY AWARE ABOUT CPAP SETTINGS, BOWEL SOUNDS ACTIVE ON ALL QUADRANTS, PATIENT LBM 06/12 USES BEDSIDE COMODE, DENIES PAIN AT THIS TIME, WILL CONTINUE TO MONITOR.
--- NOTE | 2021-06-13 | NUR ---
PATIENT RESTING IN BED WITH EYES CLOSED, BREATHING UNLABORED CALL LIGHT AT REACH.
[2021-06-13 04:00] VITALS: BP 101/67
--- NOTE | 2021-06-13 05:02 | NUR ---
PATIENT RESTING IN BED WITH EYES CLOSE, HOOKED TO HER HOME CPAP, BREATHING UNLBAORED SPO2 97% CALL LIGHT AT REACH.
--- NOTE | 2021-06-13 07:00 | NUR ---
REPORT RECEIVED FROM FILEMON TAN
--- NOTE | 2021-06-13 09:30 | NUR ---
PT RESTING IN RECLINER,A&O X3;VS OBTAINED AND ASSESSMENT COMPLETED;PT DENIES ANY CURRENT PAIN OR DISCOMFORTS,PAIN SCALE AND REPORTING EDUCATED;RESPIRATIONS EVEN AND UNLABORED ON O2 @ 4L HF NC, DIMINISHED LUNG SOUNDS WITH NON-PRODUCTIVE COUGH;ABDOMEN SOFT ON PALPATION AND ACTIVE IN ALL 4 QUADRANTS;STRONG PEDAL PULSES;SKIN INTACT;#22G TO LH FLUSHED AND PATENT,SITE APPEARS HEALTHY;PT DENIES ANY ADDITIONAL NEEDS AND IS ENCOURAGED TO CALL FOR ASSISTANCE IF NEEDED;FALL PRECAUTIONS IN PLACE WITH BED IN THE LOWEST POSITION AND CALL LIGHT IN REACH;WILL CONTINUE TO MONITOR
[2021-06-13 09:32] VITALS: BP 107/66
--- NOTE | 2021-06-13 10:00 | NUR ---
OXYGEN QUALIFICATION TEST COMPLETED AT THIS TIME;PT AMBULATED HALLWAY WITH A STEADY GAIT. O2 DROPPED TO 85% ON 6L VIA NC AND HR DALI TO 145.D.NEL ANRP NOTIFIED AND CASE MANAGEMENT.PT RE-POSITIONED BACK INTO RECLINER;O2 DALI TO 93% AND HR DECREASED TO 100;ENCOURAGED TO CALL FOR ASSISTANCE IF NEEDED;CALL LIGHT IN REACH;WILL CONTINUE TO MONITOR
--- NOTE | 2021-06-13 10:31 | NUR ---
PHYSICAL THERAPY AT BEDSIDE WORKING WITH PT.
--- NOTE | 2021-06-13 11:13 | NUR ---
AND NENA ANRP AT BEDSIDE DISCUSSING POC.
[2021-06-13] MEDS ORDERED: DECADRON2 MG PO (11:30)
[2021-06-13] MEDS ORDERED: XANAX0.5 MG PO (11:30)
[2021-06-13] MEDS ORDERED: VENTOLIN HFA108 MCG IN (11:30)
--- NOTE | 2021-06-13 11:40 | NUR ---
PT RESTING IN RECLINER;RESPIRATIONS EVEN AND UNLABORED ON O2 @ 4L NC;PT DENIES ANY CURRENT PAIN OR DISCOMFORTS;IV SITE PATENT TO ;PT EDUCATED ON PLANS TO D/C HOME THIS AFTERNOON WITH HOME HEALTH AND VERBALIZES UNDERSTANDING;PT DENIES ANY ADDITIONAL NEEDS AT THIS TIME AND IS ENCOURAGED TO CALL FOR ASSISTANCE IF NEEDED;CALL LIGHT IN REACH;WILL CONTINUE TO MONITOR
--- NOTE | 2021-06-13 13:19 | NUR ---
ALL DISCHARGE INSTRUCTIONS PROVIDED AT THIS TIME;PT INSTRUCTED TO F/U WITH PCP LATER IN THE WEEK, TAKE HOME ROUTINE MEDICATIONS, TAKE XANAX DIRECTED, TAKE DECADRON DIRECTED AND ALBUTERAL INHALER NEEDED;HOME OXYGEN TO BE PROVIDED FOR D/C HOME, PT INSTRUCTED TO KEEP SPO2 ABOVE 90%;PT DENIES ANY ADDITIONAL QUESTIONS OR NEEDS;WC TO BE PROVIDED FOR D/C HOME;AWAITING HOME OXYGEN DELIVERY FROM [facility] FOR D/C HOME;FAMILY TO TRANSPORT PT HOME;WILL CONTINUE TO MONITOR
--- NOTE | 2021-06-13 14:39 | NUR ---
Patient participated with PT intervention today. Patient participated with log rolling bed mobility and sit to stand push off transfer ADLs for 1 to 3 reps with occasional verbal and tactile cuing to help decrease trick movements and fall risks. Patient carried out B LE seated AROM exercises doing hip flexion, hip adduction, hip abduction, hamstring curls, knee extension, and ankle pumps for 20 reps x 2 sets with occasional verbal and tactile cuing to help decrease trick movements and fall risks, while trying to rectify heart rate which is exacerbated with 6 minute walk test (increase exercise protocol and functional weight bearing ADL would help minimize heart rate with increased functional weight bearing ADLs)
--- NOTE | 2021-06-13 16:00 | NUR ---
PT RESTING IN RECLINER;RESPIRATIONS EVEN AND UNLABORED ON O2 @ 4L VIA NC;PT DENIES ANY CURRENT PAIN OR NEEDS;IV SITE PATENT;AWAITING HOME OXYGEN DELIVERY BY [facility] FOR D/C HOME;PT ENCOURAGED TO CALL FOR ASSISTANCE IF NEEDED;CALL LIGHT IN REACH;WILL CONTINUE TO MONITOR
[2021-06-13 16:03] VITALS: BP 102/58
--- NOTE | 2021-06-13 16:45 | NUR ---
HOME OXYGEN PROVIDED BY [facility] AT THIS TIME.PT EDUCATED ON USE AND VERBALIZES UNDERSTANDING;BUSINESS CARD PROVIDED FOR HER TO CALL FOR HOME SETUP ONCE HOME;PT DENIES ANY ADDITIONAL QUESTIONS OR NEEDS;IV SITE REMOVED WITH CATHETER INTACT;WC TO BE PROVIDED FOR D/C HOME;FAMILY TO TRANSPORT PT HOME;WILL CONTINUE TO MONITOR
--- NOTE | 2021-06-13 17:06 | NUR ---
Discharge instructions given. Patient verbalizes understanding of same. Discharged in stable condition via Wheelchair to Home with family. All belongings sent with pt. PT TRANSPORTED TO [facility] IN STABLE CONDITION VIA ACCOMPANIED BY CLAIRE BLACK;ALL BELONGINGS LEFT WITH PT INCLUDING PORTABLE HOME OXYGEN AND SCRIPTS FOR XANAX,DECADRON AND INHALER;FAMILY TO TRANSPORT PT HOME.
== END 2021-06-13 17:06 | DRG 177 ==
LOC: ED 16:05 → ED-I 17:43 → ED 18:48 → MS2 18:49
PROVIDERS: Emergency Medicine; Nurse Practitioner; Nurse Practitioner Family; ADMIT Hospitalist; ATTEND Hospitalist
PROC: XW033E5 Introduction of Remdesivir Anti-infective into Peripheral Vein, Percutaneous Approach, New Technology Group 5 (ICD-10-PCS; principal; 2021-05-24)
DX: U07.1 COVID-19 (principal); J12.82 Pneumonia due to coronavirus disease 2019; J96.01 Acute respiratory failure with hypoxia; Z68.42 Body mass index [BMI] 45.0-49.9, adult; G47.30 Sleep apnea, unspecified; J45.909 Unspecified asthma, uncomplicated; E66.01 Morbid (severe) obesity due to excess calories; F41.9 Anxiety disorder, unspecified
CPT/HCPCS: J1650; Q9967